=== PATIENT | female | born 1970 | race Caucasian/White ===

== ENCOUNTER → 2017-03-13 | Outpatient (CLI) | payer OTHER ==
[~2017-03-13] MED LIST: ASPIRIN81 M1 PO; BACTRIM DS 8001 TA1 PO; CARAFATE1 G1 PO; CEFUROXIME AXE250 MG PO; CELEXA20 MG PO; CEPHULAC10 GM/151 PO; Carafate1 GM PO; DELTASONE20 MG; DELTASONE20 MG PO; DOXYCYCLINE100 M4 PO; DOXYCYCLINE100 MG PO; FIORICET 325 MG1 TAB PO; HYDROCODONE BIT1 T11 PO; IMITREX100 MG PO; LACTULOSE10 GM/152 PO; LEVAQUIN250 MG PO; LIPITOR20 MG PO; Lopressor25 MG PO; MAGNESIUM OXID400 MG PO; MIDRIN 325 MG-11 CA1 PO; NAPROSYN500 MG PO; NEURONTIN600 MG PO; NEXIUM10 MG/PACK PO; NEXIUM40 MG PO; PREDNISONE10 MG; PREDNISONE20 MG PO; PRENATAL 1 PLUS1 TA2 PO; PRENATAL 1 PLUS1 TAB PO; PRILOSEC20 M1 PO; QVAR40 MCG INH; ROBITUSSIN AC 110 ML PO; SYMBICORT1 AE1 INH; SYMBICORT1 AER INTRADERM; SYNTHROID,LEV200 MCG PO; SYNTHROID0.125 MG PO; SYNTHROID0.175 MG PO; SYNTHROID0.2 M1 PO; Synthroid,Lev150 MCG PO; Synthroid,Lev200 MCG PO; TOPAMAX200 MG PO; TRAMADOL HCL50 MG PO; VICODIN 5/500 505 MG PO; VITAMIN D10000 UNIT PO; VOLTAREN75 MG PO; ZITHROMAX Z PA250 MG PO; ZOCOR10 MG PO; ZOFRAN ODT4 MG SL; Zofran4 MG PO; [UNRECOGNIZED DRUG - OTHER]
== END | disposition home or self-care (01) ==
LOC: CARD 02:17
DX: R07.89 Other chest pain (principal); R53.81 Other malaise; R07.2 Precordial pain

== ENCOUNTER → 2017-05-02 | Outpatient (CLI) | payer OTHER | END | disposition home or self-care (01) | LOC: MAMMO 10:22 | DX: Z12.31 Encounter for screening mammogram for malignant neoplasm of breast (principal) ==

== ENCOUNTER → 2017-06-06 | Outpatient (CLI) | payer OTHER | END | disposition home or self-care (01) | LOC: LAB 14:28 | DX: R53.83 Other fatigue (principal); R79.89 Other specified abnormal findings of blood chemistry ==

== ENCOUNTER → 2017-08-14 | Outpatient (CLI) | payer OTHER ==
[2017-08-14 09:38] LABS: BASO # 0.1 10*3/uL (0.0-0.1); BASO % 0.9 % (0.0-1.0); EOS # 0.1 10*3/uL (0.0-0.4); EOS % 1.7 % (1.0-4.0); HEMATOCRIT 38.9 % (37.0-47.0); HEMOGLOBIN 13.1 g/dl (12.0-16.0); LYMPH # 3.3 10*3/uL (1.3-4.4); LYMPH % 49.8 % (27.0-41.0); MEAN CELL VOLUME 86.8 fl (81.0-99.0); MEAN CORPUSCULAR HGB 29.2 pg (27.0-31.0); MEAN CORPUSCULAR HGB CONC 33.7 g/dl (33.0-37.0); MEAN PLATELET VOLUME 9.7 fl (9.6-12.3); MONO # 0.6 10*3/uL (0.1-1.0); NEUT # 2.5 10*3/uL (2.3-7.9); NEUT % 38.3 % (47.0-73.0); PLATELET COUNT AUTOMATED 312 10*3/uL (130-400); RED BLOOD COUNT 4.48 10*6/uL (4.10-5.10); RED CELL DISTRI WIDTH 13.9 % (0-14.5); WHITE BLOOD COUNT 6.5 10*3/uL (4.8-10.8)
[2017-08-14 10:01] LABS: BUN 12 mg/dl (7-24); CHLORIDE 109 mmol/L (98-107); CHOLESTEROL 169 mg/dL (<200); CREATININE 0.84 mg/dL (0.55-1.02); HDL CHOLESTEROL 48 mg/dl (40-60); LDL CHOLESTEROL 91 mg/dL (9-159); POTASSIUM 4.2 mmol/L (3.5-5.1); SODIUM 142 mmol/L (136-145); TRIGLYCERIDES 151 mg/dl (<150); VLDL CHOLESTEROL 30 mg/dL (6-40)
[2017-08-14 10:06] LABS: THYROID STIM HORMONE (HS) 0.085 uIU/ml (0.358-4.75)
== END | disposition home or self-care (01) ==
LOC: LAB 09:11
PROVIDERS: Internal Medicine Cardiovascular Disease
DX: E03.9 Hypothyroidism, unspecified (principal); D86.9 Sarcoidosis, unspecified; R00.2 Palpitations; Z82.49 Family history of ischemic heart disease and other diseases of the circulatory system

== ENCOUNTER → 2017-09-13 | Outpatient (CLI) | payer OTHER | END | disposition home or self-care (01) | LOC: US 09:11 | DX: R10.9 Unspecified abdominal pain (principal) ==

== ENCOUNTER → 2017-10-24 | Outpatient (CLI) | payer OTHER ==
[~2017-10-24] MED LIST changes: +CLARITIN-D 121 EACH PO; -TOPAMAX200 MG PO; +TOPAMAX50 MG PO; +WELLBUTRIN SR150 MG PO
== END | disposition home or self-care (01) ==
LOC: LAB 16:02
DX: J02.9 Acute pharyngitis, unspecified (principal)

== ENCOUNTER 2017-10-25 15:21 | Inpatient (IN) | payer OTHER ==
[~2017-10-25] VITALS: Ht 157.4 cm; Wt 88.0 kg
--- NOTE | ~2017-10-25 | PR ---
[place], [place] PROGRESS NOTE NAME: DEDE HODGE [facility] #: [id number] UNIT #: [id number] ROOM: 503 DOCTOR: NIDIA PACKER MD BIRTHDATE: [birth year] DOS: 10/27/2017 SUBJECTIVE: Alissa who has been admitted to hospital with acute pharyngitis with swelling of the tongue with difficulty in swallowing and was some difficulty in breathing. She is feeling much better now. She is able to swallow good without any difficulty eating and she is eating or drinking fairly good without much problem and denies any chest pain, no difficulty in breathing. Her MRSA is negative. Her CBC shows white count 27,900 because she is receiving lot of Solu-Medrol IV. Basic metabolic profile showed glucose 172. Other values are normal. This is also due to IV Solu-Medrol. Rapid influenza test is negative. OBJECTIVE: VITAL SIGNS: Her blood pressure is 123/73, pulse of 96, respirations 21, temperature 98.1. CHEST: Clear. HEART: Regular. ABDOMEN: Soft. NIDIA PACKER MD CM:PNTRANS [phone] NIDIA PACKER MD 10/27/178 interface
--- NOTE | ~2017-10-25 | PR ---
[place], [place] PROGRESS NOTE [id number] #: [id number] ROOM: 503 DOCTOR: JASON KEITA MD,ELMER BIRTHDATE: [birth year] DOS: 10/29/2017 SUBJECTIVE: The patient was noted comfortable at this time. She was able to eat, swallow clear liquids as well as a solid diet without any difficulty or pain. Denies symptoms of chest pain. OBJECTIVE: VITAL SIGNS: Normal temperature, respiratory rate of 18, heart rate 82, blood pressure 129/86. The pulse oxygen saturation on room air was 100% saturation. HEENT: No acute change. NECK: Supple. CARDIOVASCULAR: S1, S2 audible. LUNGS: Noted without any wheeze or crackles. ABDOMEN: Soft, nontender. EXTREMITIES: Without any acute edema. LABORATORY DATA: CBC: WBC count 22.3 otherwise normal CBC. IMPRESSION: Resolving leukocytosis, most likely steroid-induced with resolving acute pharyngitis as well. PLAN OF TREATMENT: No change in plan of therapy for the patient at this time. Continue the patient's current plan of management and care plan. Usual care. Supportive therapy and plan of management and therapies. ELMER GOMEZ MD CM:PNTRANS [id number] ELMER KEITA MD 10/30/17 0139 interface
--- NOTE | ~2017-10-25 | PR ---
[place], [place] PROGRESS NOTE [id number] UN[facility] #: [id number] ROOM: 503 DOCTOR: NIDIA PACKER MD BIRTHDATE: [birth year] DOS: 10/28/2017 SUBJECTIVE: The patient has been admitted to hospital with difficulty in swallowing and with acute pharyngitis and also she had difficulty in breathing. To start with she is progressively getting better and having soft food fairly good, with no difficulty in breathing. No fever or chills. No nausea, no vomiting. Her MRSA is negative. OBJECTIVE: VITAL SIGNS: Her blood pressure is 116/69, pulse 92, respirations 20, temperature 98. CHEST: Clear. HEART: Rate is regular. ABDOMEN: Soft. HEENT: Some tenderness in the submandibular and she is improving. I am going to advance her food from soft food to regular diet. NIDIA PACKER MD CM:PNTRANS [id number] NIDIA PACKER MD 10/29/17 0751 interface
--- NOTE | ~2017-10-25 | CON ---
[place], [place] REPORT OF CONSULTATION NAME: DEDE HODGE [facility] #: [id number] UNIT #: [id number] ROOM: [facility] DOCTOR: JASON KEITA MD,ELMER BIRTHDATE: [birth year] DOS: 10/26/2017 PULMONARY CONSULTATION, EVALUATION, AND MANAGEMENT REQUESTING PHYSICIAN: Dr. Khurram Garner REASON FOR CONSULTATION: Assessment of current problem with the swelling of the tongue and other respiratory symptoms. HISTORY OF PRESENT ILLNESS: This is a 47-year-old white female patient with past known medical history of sarcoidosis, chronic obesity, who has been regularly assessed in my office. The patient was also noted with history of bronchial asthma as well and is known to me. The patient presented to the Emergency Room as she started having symptoms of acute sore throat and also reported some pain and swelling on the left side of the neck as well as under the jaw. The patient stated that her tongue has been swelling intermittently at home. She has been admitted to the hospital and was noted with again swelling of the tongue. She was noted with pain on swallowing at all. She is not noted in any respiratory distress, currently treated in Intensive Care Unit. She has been noted with minimal cough without any sputum expectoration. Denies symptoms of acute shortness of breath as well. Denies symptoms of wheezing or hemoptysis. The patient was checked in the primary care physician's office for the influenza infection with rapid testing and the strep throat as well. REVIEW OF SYSTEMS: CONSTITUTIONAL SYMPTOMS: Fatigue and tiredness noted without any symptoms of fever or chills. EYES: Denies any burning or redness or any drainage. EARS, NOSE, AND THROAT SYMPTOMS: Denies any postnasal drainage or epistaxis. She is complaining of sore throat. The patient has some swelling and pain in the left neck. CARDIOVASCULAR: Denies anginal pain, edema, or pain of the lower extremities. GASTROINTESTINAL SYMPTOMS: Denies any nausea, vomiting, diarrhea, abdominal pain, hematemesis, or melena. Current dysphagia and pain and swelling of the patient was reported, which is an acute onset. The patient does not have any past GI symptoms. Denies any symptoms of abnormal weight loss. MUSCULOSKELETAL: No acute joint pain, redness, or tenderness. SKIN: Denies any rashes, lesions, or ulcers. CENTRAL NERVOUS SYSTEM: No dizziness, headache, diplopia, or syncopal episodes. Remaining systems were reviewed of the patient, they were noted all negative. PAST MEDICAL HISTORY: Known with history of: 1. Mild intermittent bronchial asthma. 2. History of sarcoidosis. 3. Restless leg syndrome. 4. Chronic moderate obesity. 5. History of migraines. [place], [place] REPORT OF CONSULTATION NAME: DEDE HODGE UNIT #: [id number] ROOM: [facility] DOCTOR: ELMER DARDEN MD BIRTHDATE: [birth year] SOCIAL HISTORY: The patient is , lives at home, has 2 children. She was noted nonsmoker for lifetime. There is no history of alcohol use or any illicit drugs use. PAST SURGICAL HISTORY: 1. The patient noted with a . 2. Rotator cuff surgery. 3. Splenectomy 2010. At that time, the diagnosis of sarcoidosis was established. FAMILY HISTORY: The patient's father is 72 years old with history of coronary artery disease, diabetes, known. Mother 65 years old without any known medical illnesses. MEDICATIONS. Home medications of the patient were known as use of aspirin, Topamax, Effexor, aspirin, magnesium oxide, Synthroid, and other p.r.n. medications. DRUG ALLERGIES: No known drug allergies. PHYSICAL EXAMINATION: GENERAL: This is a 47-year-old female patient noted currently sitting on the bed without any acute distress at the time of assessment in the Intensive Care Unit. Height of 5 feet 2 inches, weight of 194 pounds with BMI 35.5. VITAL SIGNS: For the patient, which were recorded, shows a normal temperature, respiratory rate of 16-20. Heart rate of 80-74. Blood pressure 106/65-130/83. HEENT: Head was atraumatic. Eyes nonicterus. NECK: Supple. Mild lymph node enlargement noted in the neck with some tenderness noted in the submandibular area. Otherwise, the neck examination was noted normal. HEENT and neck examination of the patient otherwise noted without any acute abnormalities. Decreased posterior pharyngeal space was noted, which is chronic. LUNGS: The patient noted free of any wheezing or crackles. Good breath sounds were present. ABDOMEN: Noted soft, nontender, and obese. Bowel sounds are present. EXTREMITIES: The patient was noted without any edema. Chronic obesity was noted. SKIN: Visible skin was noted without any lesions or rashes. CENTRAL NERVOUS SYSTEM: Cranial nerves 2-12 intact. There were no focal deficits. LABORATORY DATA: CBC of the patient yesterday, WBC count 11.8, otherwise normal CBC. Rapid influenza A and B, nasal washing antigens were negative. The CMP of the patient that was done yesterday noted as completely normal. BMP this morning repeated again of the patient noted normal BUN and creatinine. CBC, WBC count 12.8. IMPRESSION: 1. The patient who has been currently admitted to the hospital with possible [place], [place] REPORT OF CONSULTATION NAME: DEDE HODGE UNIT #: [id number] ROOM: [facility] DOCTOR: JASON KEITA MD,ELMER BIRTHDATE: [birth year] swelling of the tongue, etiology unclear, most likely noted with acute pharyngitis, rule out any epiglottitis. 2. The patient with chronic moderate obesity as well. 3. History of bronchial asthma without an acute exacerbation as well. 4. History of known sarcoidosis as well. 5. Enlargement of the lymph node with tenderness in the neck, most likely related to current acute viral or bacterial infection. PLAN OF MANAGEMENT: I have personally examined the patient with the use of the GlideScope to assess the airway of the patient as well as the throat. The epiglottis of the patient was noted red, but does not seem to be swollen. Severe acute pharyngitis findings were noted with patches of infection and white patches with severe inflammatory changes. The tongue examination in general appeared to be normal at the present time. The patient would be started on oral antibiotic, Zithromax. The CT scan of the neck will be ordered for the patient to rule out Anastacio angina or any abscess formation in the back of the throat. Monitoring of the respiratory status of the patient closely in Intensive Care Unit. Other supportive therapy, plan of management and care plan. Cultures of the throat for the patient for an additional viral illness will be obtained including repeating nasopharyngeal swab for this patient for the influenza A and B again. Usual care. The patient has been already given the Solu-Medrol to help reduce the inflammation in the pharyngeal area. The patient is not requiring any intubation or mechanical ventilation at this time; however, the monitoring is to be done closely. Supportive therapy, plan of management and other care. After assessment, CT scan of the neck of the patient, any additional assessment change if necessary will be ordered accordingly. Thanks for allowing me to participate in the care of this patient. ELMER GOMEZ MD CM:CONSTR:REPORT OF CONSULTATION 1257 10/27/17 0104 interface
--- NOTE | ~2017-10-25 | PR ---
[place], [place] PROGRESS NOTE NAME: DEDE HODGE [facility] #: [id number] UNIT #: [id number] ROOM: [facility] DOCTOR: JASON KEITA MD,ELMER BIRTHDATE: [birth year] DOS: 10/27/2017 SUBJECTIVE: She has noted acute symptoms of sore throat. Denies symptoms of chest pain or any acute hemoptysis. Denies symptoms of abdominal pain, nausea or vomiting. The swelling of the tongue currently has not been noted significant. She has been using Nystatin swish and swallow medications as well. CT scan of the neck was completed yesterday. The difficulty swallowing was noted with gradual improvement. Denies symptoms of abdominal pain. The patient not noted any pain in the neck at this time. The patient denies symptoms of hemoptysis, nausea, vomiting, or dysuria. Remaining systems were reviewed. They were noted all negative. OBJECTIVE: VITAL SIGNS: For the patient, which has been recorded showed the temperature noted as normal. The respiratory rate recorded as 16, heart rate of 77, blood pressure 122/74. The pulse oxygen saturation noted as 96% saturation. HEENT: Examination shows head was atraumatic. Eyes nonicterus. NECK: Supple. CARDIOVASCULAR: S1, S2 audible. LUNGS: The patient was noted without any wheeze or crackles. ABDOMEN: Soft, nontender. EXTREMITIES: Without any acute edema. LABORATORY DATA: Glucose noted 172, otherwise CMP normal. CBC, WBC count elevated 27.9, platelet count elevated 431. A 2% segmented neutrophils were noted, 40% lymphocytes. IMPRESSION: The patient with acute pharyngitis. CT scan of the neck was not noted any significant abnormality except some prominence of the tongue base. All the airways noted as patent. Influenza A and B, nasal washing antigen negative. The respiratory viral panel was taken, which was pending at this time. History of sarcoidosis. History of mild bronchial asthma. PLAN OF TREATMENT: Continue current plan of management except reduction of Solu-Medrol from 80 mg q.8h. to 40 mg b.i.d. dosing. Leukocytosis, most likely induced by the high dose of corticosteroids. Monitor CBC. Other supportive therapy, plan and management previously ongoing. Additional treatment changes will be made for the patient based on progression of the illness. [place], [place] PROGRESS NOTE NAME: DEDE HODGE UNIT #: [id number] ROOM: [facility] DOCTOR: ELMER DARDEN MD BIRTHDATE: [birth year] ELMER GOMEZ MD CM:PNTRANS [id number] ELMER KEITA MD 10/27/17 1119 interface
--- NOTE | ~2017-10-25 | PR ---
[place], [place] [facility]GRESS NOTE [id number] #: [id number] ROOM: 503 DOCTOR: JASON KEITA MD,ELMER BIRTHDATE: [birth year] DOS: 10/28/2017 SUBJECTIVE: She has been noted comfortable with improvement in the pain noted with swallowing. Denies symptoms of chest pain or any hemoptysis. Denies symptoms of nausea or vomiting. OBJECTIVE: VITAL SIGNS: The patient showed normal temperature, respiratory rate of 20, heart rate 82, blood pressure 120/74. Pulse oxygen saturation recorded as 98% saturation on room air. HEENT: No acute findings at this time. CARDIOVASCULAR: S1, S2 is audible. LUNGS: The patient was noted without any wheezing or crackles at present time. ABDOMEN: Soft, nontender. EXTREMITIES: Without any acute edema. IMPRESSION: 1. The patient with continued improvement in the acute severe pharyngitis and pain noted. Nonspecific some swelling at base of the tongue was noted, most likely related to current acute infection was considered. 2. Leukocytosis related to corticosteroids. History of sarcoidosis. PLAN OF MANAGEMENT: Discontinue Solu-Medrol completely today. Repeat CBC in the morning. Other supportive therapy, plan of management and care plan. ELMER GOMEZ MD CM:PNTRANS [id number] ELMER KEITA MD 10/29/17 0018 interface
[~2017-10-25 15:21] MED LIST changes: -CLARITIN-D 121 EACH PO; -WELLBUTRIN SR150 MG PO
[2017-10-25 15:35] VITALS: BP 130/83
[2017-10-25 16:00] VITALS: BP 130/83
[2017-10-25] MEDS ORDERED: WELLBUTRIN SR150 MG PO (16:26)
[2017-10-25] MEDS ORDERED: CLARITIN-D 121 EACH PO (16:26)
[2017-10-25 17:48] LABS: BASO # 0.1 10*3/uL (0.0-0.1); BASO % 0.7 % (0.0-1.0); EOS # 0.2 10*3/uL (0.0-0.4); EOS % 1.7 % (1.0-4.0); HEMATOCRIT 40.8 % (37.0-47.0); HEMOGLOBIN 13.4 g/dl (12.0-16.0); LYMPH # 4.2 10*3/uL (1.3-4.4); LYMPH % 35.5 % (27.0-41.0); MEAN CELL VOLUME 87.7 fl (81.0-99.0); MEAN CORPUSCULAR HGB 28.8 pg (27.0-31.0); MEAN CORPUSCULAR HGB CONC 32.8 g/dl (33.0-37.0); MEAN PLATELET VOLUME 9.8 fl (9.6-12.3); MONO # 1.1 10*3/uL (0.1-1.0); NEUT # 6.2 10*3/uL (2.3-7.9); NEUT % 52.5 % (47.0-73.0); PLATELET COUNT AUTOMATED 392 10*3/uL (130-400); RED BLOOD COUNT 4.65 10*6/uL (4.10-5.10); RED CELL DISTRI WIDTH 14.9 % (0-14.5); WHITE BLOOD COUNT 11.8 10*3/uL (4.8-10.8)
[2017-10-25 18:06] LABS: ALBUMIN 3.4 gm/dl (3.1-4.5); ALKALINE PHOSPHATASE 80 U/L (45-117); BUN 12 mg/dl (7-24); CHLORIDE 106 mmol/L (98-107); CREATININE 0.84 mg/dL (0.55-1.02); PHOSPHOROUS 2.9 mg/dL (2.5-4.9); POTASSIUM 4.4 mmol/L (3.5-5.1); SGOT/AST 17 IU/L (3-35); SGPT/ALT 25 U/L (12-78); SODIUM 139 mmol/L (136-145)
[2017-10-25 18:18] LABS: VITAMIN D, 25-HYDROXY 22.5 ng/mL (30-100)
[2017-10-25 20:00] VITALS: BP 109/70
[2017-10-26] VITALS: BP 117/73
[2017-10-26 04:00] VITALS: BP 106/65
[2017-10-26 05:55] LABS: BUN 14 mg/dl (7-24); CHLORIDE 105 mmol/L (98-107); CREATININE 0.73 mg/dL (0.55-1.02); HEMOGLOBIN 13.8 g/dl (12.0-16.0); MEAN CELL VOLUME 87.4 fl (81.0-99.0); MEAN CORPUSCULAR HGB 29.4 pg (27.0-31.0); MEAN CORPUSCULAR HGB CONC 33.7 g/dl (33.0-37.0); MEAN PLATELET VOLUME 10.1 fl (9.6-12.3); PLATELET COUNT AUTOMATED 427 10*3/uL (130-400); RED BLOOD COUNT 4.69 10*6/uL (4.10-5.10); RED CELL DISTRI WIDTH 14.8 % (0-14.5); SODIUM 138 mmol/L (136-145); WHITE BLOOD COUNT 12.8 10*3/uL (4.8-10.8)
[2017-10-26 06:33] LABS: ACANTHOCYTES FEW; ATYPICAL LYMPHS 1 % (0-0); BURR CELLS FEW; PLATELET SUFFICIENCY HIGH (NORMAL); SCHISTOCYTES FEW; TARGET CELLS FEW; TOTAL CELLS COUNTED 100 #CELLS
[2017-10-26 06:34] LABS: HOWELL-JOLLY BODIES FEW
[2017-10-26 08:00] VITALS: BP 137/86
[2017-10-26 12:00] VITALS: BP 126/84
[2017-10-26 16:00] VITALS: BP 118/81
[2017-10-26 20:00] VITALS: BP 108/64
[2017-10-27] VITALS: BP 110/56
[2017-10-27 04:00] VITALS: BP 121/69
[2017-10-27 05:06] LABS: HEMATOCRIT 41.4 % (37.0-47.0); HEMOGLOBIN 13.5 g/dl (12.0-16.0); MEAN CELL VOLUME 87.3 fl (81.0-99.0); MEAN CORPUSCULAR HGB 28.5 pg (27.0-31.0); MEAN CORPUSCULAR HGB CONC 32.6 g/dl (33.0-37.0); MEAN PLATELET VOLUME 9.9 fl (9.6-12.3); PLATELET COUNT AUTOMATED 431 10*3/uL (130-400); RED BLOOD COUNT 4.74 10*6/uL (4.10-5.10); RED CELL DISTRI WIDTH 14.6 % (0-14.5); WHITE BLOOD COUNT 27.9 10*3/uL (4.8-10.8)
[2017-10-27 05:21] LABS: BUN 19 mg/dl (7-24); CHLORIDE 106 mmol/L (98-107); CREATININE 0.87 mg/dL (0.55-1.02); POTASSIUM 4.4 mmol/L (3.5-5.1); SODIUM 138 mmol/L (136-145)
[2017-10-27 05:31] LABS: PLATELET SUFFICIENCY HIGH (NORMAL); TOTAL CELLS COUNTED 100 #CELLS
[2017-10-27 05:32] LABS: BURR CELLS FEW; POLYCHROMASIA SLIGHT
[2017-10-27 08:00] VITALS: BP 123/74
[2017-10-27 12:00] VITALS: BP 123/76
[2017-10-27 16:00] VITALS: BP 119/69
[2017-10-27 20:00] VITALS: BP 123/72
[2017-10-28] VITALS: BP 128/65
[2017-10-28 08:00] VITALS: BP 116/69
[2017-10-28 12:00] VITALS: BP 128/74
[2017-10-28 16:00] VITALS: BP 123/82
[2017-10-28 19:59] VITALS: BP 117/73
[2017-10-29] VITALS: BP 111/65
[2017-10-29 06:25] LABS: HEMATOCRIT 39.9 % (37.0-47.0); HEMOGLOBIN 13.5 g/dl (12.0-16.0); MEAN CELL VOLUME 87.9 fl (81.0-99.0); MEAN CORPUSCULAR HGB 29.7 pg (27.0-31.0); MEAN CORPUSCULAR HGB CONC 33.8 g/dl (33.0-37.0); MEAN PLATELET VOLUME 10.1 fl (9.6-12.3); NUCLEATED RED BLOOD CELL 0.1 % (0.0-0.0); PLATELET COUNT AUTOMATED 406 10*3/uL (130-400); RED BLOOD COUNT 4.54 10*6/uL (4.10-5.10); RED CELL DISTRI WIDTH 15.1 % (0-14.5); WHITE BLOOD COUNT 22.3 10*3/uL (4.8-10.8)
[2017-10-29 07:00] LABS: ACANTHOCYTES FEW; ATYPICAL LYMPHS 4 % (0-0); HOWELL-JOLLY BODIES FEW; PLATELET SUFFICIENCY NORMAL (NORMAL); TOTAL CELLS COUNTED 100 #CELLS
[2017-10-29 08:00] VITALS: BP 117/83
[2017-10-29 12:00] VITALS: BP 129/86
[2017-10-29] MEDS ORDERED: PREDNISONE10 MG PO (13:03)
[2017-10-30 01:02] LABS: ADENOVIRUS Negative (Negative); INFLUENZA A Negative (Negative); INFLUENZA B Negative (Negative); METAPNEUMOVIRUS Negative (Negative); PARAINFLUENZA 1 Negative (Negative); PARAINFLUENZA 2 Negative (Negative); PARAINFLUENZA 3 Negative (Negative); RHINOVIRUS Negative (Negative); RSV A Negative (Negative); RSV B Negative (Negative)
== END 2017-10-29 14:08 | disposition home or self-care (01) | DRG 153 ==
LOC: ICCU 15:21 → 4E 15:21 → ICCU 17:47 → 5E 10-27 13:29
PROVIDERS: Internal Medicine Critical Care Medicine; Student in an Organized Health Care Education/Training Program
DX: J02.9 Acute pharyngitis, unspecified (principal); D86.9 Sarcoidosis, unspecified; K14.8 Other diseases of tongue; J41.0 Simple chronic bronchitis; F32.9 Major depressive disorder, single episode, unspecified; E03.9 Hypothyroidism, unspecified; G43.919 Migraine, unspecified, intractable, without status migrainosus; K59.00 Constipation, unspecified; J45.20 Mild intermittent asthma, uncomplicated; E66.9 Obesity, unspecified; G25.81 Restless legs syndrome; R59.0 Localized enlarged lymph nodes; E55.9 Vitamin D deficiency, unspecified; R73.9 Hyperglycemia, unspecified; T38.0X5A Adverse effect of glucocorticoids and synthetic analogues, initial encounter; Y92.89 Other specified places as the place of occurrence of the external cause; Z86.73 Personal history of transient ischemic attack (TIA), and cerebral infarction without residual deficits; Z90.81 Acquired absence of spleen; Z82.49 Family history of ischemic heart disease and other diseases of the circulatory system; Z83.3 Family history of diabetes mellitus; Z79.82 Long term (current) use of aspirin; Z79.899 Other long term (current) drug therapy; Z68.35 Body mass index [BMI] 35.0-35.9, adult

== ENCOUNTER 2018-04-30 13:49 | Emergency (ER) | payer OTHER ==
[~2018-04-30] VITALS: Ht 157.4 cm; Wt 82.6 kg
--- NOTE | ~2018-04-30 | EKG ---
[place], [place] ELECTROCARDIOGRAM REPORT NAME: DEDE HODGE UNIT #: [id number] ROOM: DOCTOR: EPIPHANY DRAFT REPORT BIRTHDATE: [birth year] [facility] Test Date: 2018-04-30 Test Time: 14:12:11 Pat Name: DEDE HODGE Department: Room: Gender: F [employer]: : 1970 Requested By: ELI GARCÍA DNP Order Number: [id number] Reading MD: Khurram Garner MD Measurements Intervals [place] Rate: 99 P: 43 [place]: 123 QRS: 49 QRSD: 78 T: -1 QT: 351 QTc: 451 Interpretive Statements Sinus rhythm Borderline T wave abnormalities Baseline wander in lead(s) V6 Electronically Signed On 05-01-2018 6:40:48 PDT by Khurram Garner MD CM:EKGRPT:ELECTROCARDIOGRAM REPORT [id number] ELI MCKEON DRAFT REPORT ELI GARCÍA DNP
[~2018-04-30 13:49] MED LIST changes: +CLARITIN-D 121 EACH PO; +PREDNISONE10 MG PO; +WELLBUTRIN SR150 MG PO
[2018-04-30 13:51] VITALS: BP 126/88
[2018-04-30 14:26] LABS: BASO # 0.1 10*3/uL (0.0-0.1); BASO % 0.8 % (0.0-1.0); EOS # 0.3 10*3/uL (0.0-0.4); EOS % 2.3 % (1.0-4.0); HEMATOCRIT 41.2 % (37.0-47.0); HEMOGLOBIN 13.7 g/dl (12.0-16.0); LYMPH # 3.1 10*3/uL (1.3-4.4); LYMPH % 26.8 % (27.0-41.0); MEAN CELL VOLUME 88.6 fl (81.0-99.0); MEAN CORPUSCULAR HGB 29.5 pg (27.0-31.0); MEAN CORPUSCULAR HGB CONC 33.3 g/dl (33.0-37.0); MEAN PLATELET VOLUME 9.8 fl (9.6-12.3); MONO # 1.2 10*3/uL (0.1-1.0); MONO % 10.9 % (3.0-9.0); NEUT # 6.7 10*3/uL (2.3-7.9); NEUT % 58.7 % (47.0-73.0); PLATELET COUNT AUTOMATED 355 10*3/uL (130-400); RED BLOOD COUNT 4.65 10*6/uL (4.10-5.10); RED CELL DISTRI WIDTH 14.2 % (0-14.5); WHITE BLOOD COUNT 11.4 10*3/uL (4.8-10.8)
[2018-04-30 14:34] LABS: ACT PARTIAL THROMBO TIME 25.1 SECONDS (20.8-31.5)
[2018-04-30 14:42] LABS: ALBUMIN 3.8 gm/dl (3.1-4.5); ALKALINE PHOSPHATASE 84 U/L (45-117); BUN 14 mg/dl (7-24); CHLORIDE 106 mmol/L (98-107); CREATININE 0.98 mg/dL (0.55-1.02); LIPASE 165 U/L (73-393); POTASSIUM 3.6 mmol/L (3.5-5.1); SGOT/AST 14 IU/L (3-35); SGPT/ALT 21 U/L (12-78); SODIUM 138 mmol/L (136-145)
[2018-04-30 14:45] LABS: TROPONIN I < 0.015 ng/ml (<0.045)
[2018-04-30 15:23] LABS: BILIRUBIN NEGATIVE (NEGATIVE); BLOOD 1+ (NEGATIVE); CLARITY CLEAR (CLEAR); COLOR YELLOW (YELLOW); GLUCOSE NEGATIVE (NEGATIVE); KETONE 1+ (NEGATIVE); LEUKO ESTERASE 1+ (NEGATIVE); NITRITE NEGATIVE (NEGATIVE); PH 5.5 (5.0-9.0); UROBILINOGEN 0.2 E.U./dl (0.2-1.0)
[2018-04-30 15:54] LABS: BACTERIA TRACE; EPITHELIAL CELLS 25-30
[2018-04-30] MEDS ORDERED: PREDNISONE20 M1 PO (16:30)
[2018-04-30] MEDS ORDERED: Zofran4 MG SL (16:30)
== END 2018-04-30 16:55 | disposition home or self-care (01) ==
LOC: ED 13:49
PROVIDERS: Nurse Practitioner Family
DX: J06.9 Acute upper respiratory infection, unspecified (principal); J20.9 Acute bronchitis, unspecified; Z79.899 Other long term (current) drug therapy; Z79.82 Long term (current) use of aspirin

== ENCOUNTER → 2018-09-02 | Outpatient (CLI) | payer OTHER ==
[~2018-09-02] MED LIST changes: +PREDNISONE20 M1 PO; +Zofran4 MG SL
[2018-09-02 10:33] LABS: ALBUMIN 3.7 gm/dl (3.1-4.5); BUN 19 mg/dl (7-24); CHLORIDE 111 mmol/L (98-107); CREATININE 1.08 mg/dL (0.55-1.02); FREE T4 0.67 ng/dl (0.76-1.46); POTASSIUM 3.7 mmol/L (3.5-5.1); SODIUM 142 mmol/L (136-145)
[2018-09-02 11:41] LABS: VITAMIN D, 25-HYDROXY 29.7 ng/mL (30-100)
[2018-09-03 07:07] LABS: FOLLICLE STIMULATING HORMONE 8.2 mIU/mL (.); FREE T3 010389 2.8 pg/mL (2.0-4.4); LUTEINIZING HORMONE 004283 7.5 mIU/mL (.); PROGESTERONE 004317 7.7 ng/mL (.); THYROID PEROXIDASE (TPO) AB 18 IU/mL (0-34)
[2018-09-03 14:09] LABS: THYROGLOBULIN ANTIBODY <1.0 IU/mL (0.0-0.9)
[2018-09-04 09:16] LABS: DEHYDROEPIANDROSTERONE 004100 102 ng/dL (31-701)
== END | disposition home or self-care (01) ==
LOC: LAB 09:21
PROVIDERS: Internal Medicine
DX: E03.9 Hypothyroidism, unspecified (principal); E55.9 Vitamin D deficiency, unspecified; L65.9 Nonscarring hair loss, unspecified; N95.1 Menopausal and female climacteric states; R51 Headache

== ENCOUNTER → 2018-09-03 | Outpatient (CLI) | payer OTHER | END | disposition home or self-care (01) | LOC: MAMMO 13:16 | DX: N63.0 Unspecified lump in unspecified breast (principal) ==

== ENCOUNTER → 2018-12-17 | Outpatient (CLI) | payer OTHER ==
[~2018-12-17] MED LIST changes: +ARMOUR THYROID90 M1 PO; +TOPAMAX100 M1 PO
[2018-12-17 10:48] LABS: ALBUMIN 3.6 gm/dl (3.1-4.5); BUN 12 mg/dl (7-24); CHLORIDE 108 mmol/L (98-107); CREATININE 1.03 mg/dL (0.55-1.02); POTASSIUM 3.8 mmol/L (3.5-5.1); SODIUM 138 mmol/L (136-145)
== END | disposition home or self-care (01) ==
LOC: LAB 09:33
PROVIDERS: Internal Medicine
DX: N95.1 Menopausal and female climacteric states (principal); E03.9 Hypothyroidism, unspecified; E55.9 Vitamin D deficiency, unspecified; R00.2 Palpitations; W57.XXXA Bitten or stung by nonvenomous insect and other nonvenomous arthropods, initial encounter

== ENCOUNTER → 2019-04-29 | Outpatient (CLI) | payer OTHER ==
[2019-04-29 14:29] LABS: BUN 16 mg/dl (7-24); CHLORIDE 107 mmol/L (98-107); FREE T4 0.89 ng/dl (0.76-1.46); POTASSIUM 3.7 mmol/L (3.5-5.1); SODIUM 139 mmol/L (136-145)
[2019-04-29 14:35] LABS: THYROID STIM HORMONE (HS) 0.328 uIU/ml (0.358-4.75)
[2019-04-30 07:05] LABS: LUTEINIZING HORMONE 004283 6.9 mIU/mL (.); PROGESTERONE 004317 0.2 ng/mL (.)
== END | disposition home or self-care (01) ==
LOC: LAB 13:28
PROVIDERS: Internal Medicine
DX: E55.9 Vitamin D deficiency, unspecified (principal); E03.9 Hypothyroidism, unspecified; N95.1 Menopausal and female climacteric states; R00.2 Palpitations

== ENCOUNTER → 2019-05-05 | Outpatient (CLI) | payer OTHER ==
[~2019-05-05] MED LIST changes: +PROTONIX40 MG PO; +Ventolin 02.5 MG/3 M INH
== END | disposition home or self-care (01) ==
LOC: RAD 14:46
DX: M67.431 Ganglion, right wrist (principal)

== ENCOUNTER 2019-07-03 13:25 | Inpatient (IN) | payer OTHER ==
[~2019-07-03] VITALS: Ht 157.4 cm; Wt 80.5 kg
[~2019-07-03 13:25] MED LIST changes: -PROTONIX40 MG PO; -Ventolin 02.5 MG/3 M INH
[2019-07-03 13:27] VITALS: BP 147/89
[2019-07-03 13:44] LABS: HEMATOCRIT 43.7 % (37.0-47.0); HEMOGLOBIN 14.7 g/dl (12.0-16.0); MEAN CELL VOLUME 89.4 fl (81.0-99.0); MEAN CORPUSCULAR HGB 30.1 pg (27.0-31.0); MEAN CORPUSCULAR HGB CONC 33.6 g/dl (33.0-37.0); MEAN PLATELET VOLUME 9.7 fl (9.6-12.3); PLATELET COUNT AUTOMATED 390 10*3/uL (130-400); RED BLOOD COUNT 4.89 10*6/uL (4.10-5.10); RED CELL DISTRI WIDTH 14.6 % (0-14.5); WHITE BLOOD COUNT 12.5 10*3/uL (4.8-10.8)
[2019-07-03 13:56] LABS: ACT PARTIAL THROMBO TIME 26.8 SECONDS (20.0-32.1); INTERNATIONAL NORM RATIO 0.9 (2.0-3.5)
[2019-07-03 14:06] LABS: BASOPHILS 2 % (0-1); TOTAL CELLS COUNTED 100 #CELLS
[2019-07-03 14:07] LABS: PLATELET SUFFICIENCY NORMAL (NORMAL)
[2019-07-03 15:05] LABS: ALBUMIN 3.4 gm/dl (3.1-4.5); ALKALINE PHOSPHATASE 73 U/L (45-117); BUN 15 mg/dl (7-24); CHLORIDE 108 mmol/L (98-107); CREATININE 1.16 mg/dL (0.55-1.02); POTASSIUM 3.5 mmol/L (3.5-5.1); SGOT/AST 22 IU/L (3-35); SGPT/ALT 35 U/L (12-78); SODIUM 140 mmol/L (136-145); TOTAL PROTEIN 7.4 gm/dL (6.4-8.2)
[2019-07-03 15:09] LABS: TROPONIN I < 0.015 ng/ml (<0.045)
[2019-07-03 15:38] VITALS: BP 125/64
--- NOTE | 2019-07-03 15:43 | NUR ---
PATIENT RESTING IN BED AT THIS TIME. DENIES A NEED FOR ANYTHING AT THIS TIME. CALL LIGHT WITHIN REACH.
[2019-07-03 15:47] VITALS: BP 136/77
--- NOTE | 2019-07-03 15:47 | NUR ---
A 48, admitted to , under the services of KERI Mahajan MD with a diagnosis of CHEST PAIN WITH MODERATE CORONARY ARTERY RISK. Chief complaint is CHEST PAIN. Patient arrived via stretcher from ER. Monitor applied. Initial assessment completed. Vital signs taken and recorded. KERI MAHAJAN MD notified of admission to the unit. Orders received. See assessment for past medical history, medications and allergies. Patient and/or family oriented to unit. [facility] visitation policy reviewed. Clothing/patient valuable form completed. MYAH OLSEN
[2019-07-03] MEDS ORDERED: PRILOSEC20 M1 PO (15:59)
[2019-07-03] MEDS ORDERED: IMITREX100 MG PO (16:02)
[2019-07-03] MEDS ORDERED: Ventolin 02.5 MG/3 M INH (16:04)
--- NOTE | 2019-07-03 16:10 | NUR ---
Contacted patients home pharmacy. Medication reconciliation updated and complete.
--- NOTE | 2019-07-03 16:15 | NUR ---
Face to face encounter with Dr. Monson and notified of patients med rec being completed and up to date.
--- NOTE | 2019-07-03 16:31 | NUR ---
DISPO COMPLETED BY TERRY VALENCIA LPN
[2019-07-03 20:00] VITALS: BP 116/73
--- NOTE | 2019-07-03 20:06 | NUR ---
RESTING IN BED. RESPIRATIONS EASY. LUNGS DIMINISHED, CLEAR. PULSE OX 98% RA. CLAIMS NON-PROD COUGH. MEDICATED WITH ZOFRAN IV PER PRN ORDER FOR COMPLAINTS OF NAUSEA. IV FLUIDS INFUSING PER ORDER. CALL LIGHT WITHIN REACH
--- NOTE | 2019-07-03 20:44 | NUR ---
24 HR chart check completed.
--- NOTE | 2019-07-03 23:00 | NUR ---
EARLIER MEDS APPEAR EFFECTIVE. SLEEPING
[2019-07-04] VITALS: BP 115/52
--- NOTE | 2019-07-04 | NUR ---
SLEEPING. NO DISTRESS NOTED. RESPIRATIONS EASY. VSS. CALL LIGHT WITHIN REACH
--- NOTE | 2019-07-04 06:00 | NUR ---
SLEPT THROUGHOUT NIGHT WITH NO DISTRESS NOTED. RESPIRATIONS EASY. NPO STATUS MAINTAINED FOR TESTING
[2019-07-04 06:29] LABS: BASO % 0.2 % (0.0-1.0); HEMATOCRIT 42.3 % (37.0-47.0); HEMOGLOBIN 13.6 g/dl (12.0-16.0); LYMPH # 1.6 10*3/uL (1.3-4.4); LYMPH % 16.6 % (27.0-41.0); MEAN CELL VOLUME 89.6 fl (81.0-99.0); MEAN CORPUSCULAR HGB 28.8 pg (27.0-31.0); MEAN CORPUSCULAR HGB CONC 32.2 g/dl (33.0-37.0); MEAN PLATELET VOLUME 10.8 fl (9.6-12.3); MONO # 0.1 10*3/uL (0.1-1.0); MONO % 1.3 % (3.0-9.0); NEUT # 7.6 10*3/uL (2.3-7.9); NEUT % 81.5 % (47.0-73.0); PLATELET COUNT AUTOMATED 348 10*3/uL (130-400); RED BLOOD COUNT 4.72 10*6/uL (4.10-5.10); RED CELL DISTRI WIDTH 14.6 % (0-14.5); WHITE BLOOD COUNT 9.4 10*3/uL (4.8-10.8)
[2019-07-04 06:46] LABS: ALBUMIN 3.3 gm/dl (3.1-4.5); BUN 11 mg/dl (7-24); CHLORIDE 111 mmol/L (98-107); POTASSIUM 4.4 mmol/L (3.5-5.1); SODIUM 138 mmol/L (136-145)
[2019-07-04 06:53] LABS: ALKALINE PHOSPHATASE 72 U/L (45-117); CHOLESTEROL 229 mg/dL (<200); CREATININE 0.92 mg/dL (0.55-1.02); HDL CHOLESTEROL 57 mg/dl (40-60); LDL CHOLESTEROL 159 mg/dL (9-159); PHOSPHOROUS 2.7 mg/dL (2.5-4.9); SGOT/AST 26 IU/L (3-35); SGPT/ALT 33 U/L (12-78); TOTAL PROTEIN 7.3 gm/dL (6.4-8.2); TRIGLYCERIDES 64 mg/dl (<150); VLDL CHOLESTEROL 13 mg/dL (6-40)
[2019-07-04 08:00] VITALS: BP 111/68
--- NOTE | 2019-07-04 09:00 | NUR ---
[employer] in to talk to patient. Patient states lives at home with her fiance. There are 2 steps in the home. Physician: Dr. Khurram Garner [facility]acy: [facility] Home health services: none Patient's level of ADLs: INDEPENDENT Patient has working utilities: yes DME: none Follow-up physician's appointment after d/c: she prefers to make her own follow up appt after discharge Does patient want to access PORTAL?: no Discharge plan discussed with patient. She lives at home with her fiance. She is independent in her ADLs and ambulation. Discussed home health care services and she denies any home needs at this time. She says a nurse comes to her house every 6 months from her insurance company to check on her needs. When medically stable she will be discharged to home. She states she will call a friend to provide transportation to home up on discharge. NIKUNJ RODRIGUEZ
[2019-07-04 12:00] VITALS: BP 131/62
--- NOTE | 2019-07-04 13:06 | NUR ---
INFORMED SIGNED CONSENT OBTAINED FOR LEXISCAN STRES TEST WITH DR MOURA. RESTING EKG SINUS TACHYCARDIA HR 102 BP 120/78. PULSE OX 100% LUNGS CLEARLY DIMINISHED. PT COMPLETED ONE MINUTE OF A LEXISCAN PROTOCOL WITH PT RECEIVING LEXISCAN 0.4 MG IV OVER 10 SECONDS. NO ARRHYTHMIAS NOTED. NON DIAGNOSTIC ST DEPRESSION II III AVF V3-V6. PT C/O A HOT FLASH FEELING WITH INJECTION. LAST RECOVERY HR OF 121 BP 124/60. PT IN STABLE CONDITION, AWAITING NUCLEAR IMAGES.
--- NOTE | 2019-07-04 15:41 | NUR ---
PT. REFUSED AEROSOL TREATMENT AT THIS TIME.
[2019-07-04 16:00] VITALS: BP 130/60
[2019-07-04 20:00] VITALS: BP 119/63
--- NOTE | 2019-07-04 21:48 | NUR ---
PATIENT ADMINISTERED WITH RESTORIL PRN FOR COMPLAINTS OF NOT BEING ABLE TO SLEEP, AND RESTLESSNESS. RN WILL CONTINUE TO MONITOR
[2019-07-05] VITALS: BP 110/60
[2019-07-05 07:18] LABS: HEMATOCRIT 36.9 % (37.0-47.0); HEMOGLOBIN 12.1 g/dl (12.0-16.0); MEAN CELL VOLUME 90.9 fl (81.0-99.0); MEAN CORPUSCULAR HGB 29.8 pg (27.0-31.0); MEAN CORPUSCULAR HGB CONC 32.8 g/dl (33.0-37.0); MEAN PLATELET VOLUME 9.9 fl (9.6-12.3); PLATELET COUNT AUTOMATED 385 10*3/uL (130-400); RED BLOOD COUNT 4.06 10*6/uL (4.10-5.10); RED CELL DISTRI WIDTH 15.3 % (0-14.5); WHITE BLOOD COUNT 17.4 10*3/uL (4.8-10.8)
[2019-07-05 07:36] LABS: BUN 14 mg/dl (7-24); CHLORIDE 110 mmol/L (98-107); CREATININE 1.08 mg/dL (0.55-1.02); POTASSIUM 4.1 mmol/L (3.5-5.1); SODIUM 142 mmol/L (136-145)
[2019-07-05 07:58] LABS: ATYPICAL LYMPHS 2 % (0-0); PLATELET SUFFICIENCY NORMAL (NORMAL); TOTAL CELLS COUNTED 100 #CELLS
--- NOTE | 2019-07-05 08:00 | NUR ---
IN TO ROOM. PT AWAKE, ALERT AND ORIENTED. PLEASANT AND COOPERATIVE WITH CARE AND ASSESSMENT. COMPLAINTS OF NAUSEA AT THIS TIME. RESPIRATIONS EASY AND REGULAR. NO S/S OF DISTRESS OR SOB. BED IN LOWEST LOCKED POSITION AND CALL LIGHT WITHIN REACH. WILL CONTINUE TO MONITOR.
--- NOTE | 2019-07-05 08:45 | NUR ---
PT HAD 1 EPISODE OF EMESIS. PRN ZOFRAN ADMINISTERED AT THIS TIME. WILL MONITOR FOR EFFECTIVENESS.
[2019-07-05 09:00] VITALS: BP 105/72
--- NOTE | 2019-07-05 10:30 | NUR ---
PT HAD ANOTHER EPISODE OF EMESIS. DR. MOURA NOTIFIED AND PHENERGAN ORDER OBTAINED.
--- NOTE | 2019-07-05 11:00 | NUR ---
PT STILL COMPLAINING OF NAUSEA AND VOMITTING. PHENERGAN ADMINISTERED AT THIS TIME. WILL MONITOR FOR EFFECTIVENESS.
--- NOTE | 2019-07-05 11:55 | NUR ---
PT SLEEPING IN BED. NO S/S OF DISTRESS. NO SOB NOTED. PRN PHENERGAN CONSIDERED EFFECTIVE. BED IN LOWEST LOCKED POSITION AND CALL LIGHT WITHIN REACH. WILL CONTINUE TO MONITOR.
[2019-07-05 12:00] VITALS: BP 111/68
[2019-07-05 16:00] VITALS: BP 110/64
--- NOTE | 2019-07-05 19:21 | NUR ---
DR. URBANO CALLED PER DR. MOURA REQUEST TO HAVE HIM READ PATIENT STRESS TEST FROM TODAY. UNABLE TO LEAVE MESSAGE AT THIS TIME MAILBOX WAS FULL.
--- NOTE | 2019-07-05 19:28 | NUR ---
MESSAGE LEFT FOR DR. SOTO TO RETURN CALL FOR INFORMATION ON NEW CONSULT ON THIS PATIENT.
--- NOTE | 2019-07-05 19:32 | NUR ---
24 HOUR CHART CHECK COMPLETED
--- NOTE | 2019-07-05 19:43 | NUR ---
DR. URBANO NOTIFIED AT THIS TIMEOF DR. MOURA REQUEST FOR HIM TO READ PATIENT STRESS TEST FROM TODAY, HE STATED HE WOULD TRY AND REVIEW IT TONIGHT OR FIRST THING IN AM.
[2019-07-05 20:00] VITALS: BP 110/69
--- NOTE | 2019-07-05 20:15 | NUR ---
PATIENT ASSESSMENT COMPLETED AT THIS TIME WITHOUT INCIDENT. PATIENT HAD A MODERATE EMESIS AT 1930 WHICH THIS NURSE WAS AWARE OF AND MEDICATED PATIENT FOR NAUSEA WHICH IS PERSISTANT, DR NOLASCO NOTIFED AND ORDERS RECEIVED, SEE EMAR. PATIENT REFUSED MUCINEX AT THIS TIME DUE TO NAUSEA. CALL LIGHT WITHIN REACH WILL CONTINUE TO MONITOR.
--- NOTE | 2019-07-05 22:20 | NUR ---
DR. SOTO NOTIFIED OF CONSULT ORDERS RECEIVED FOR AM. HE WANTS CALLED WITH RESULTS OF CT AND ABDOMINAL XRAY AT 0900
[2019-07-06] VITALS: BP 98/52
[2019-07-06 08:00] VITALS: BP 118/62
[2019-07-06 12:00] VITALS: BP 103/58
[2019-07-06 16:00] VITALS: BP 105/68
[2019-07-06 20:00] VITALS: BP 120/73
--- NOTE | 2019-07-06 20:23 | NUR ---
CALLED DR MOURA PER PATIENT REQUEST. SHE STATES SHE IS HAVING PAIN 5/10 AND DOES NOT THINK THAT THE TYLENOL PRN WILL BE EFFECTIVE AND IS ASKING FOR SOMETHING STRONGER. DR. MOURA WANTS A TORADOL X1 IV.
--- NOTE | 2019-07-06 20:23 | NUR ---
PATIENT ATTEMPTED TO HAVE BM AT THIS TIME, FLEETS ENEMA PROVIDED. ONLY SMALL AMOUNT OF HARD STOOL PRODUCED. PATIENT C/O OF ABDOMINAL PAIN.
--- NOTE | 2019-07-06 20:36 | NUR ---
PT STATES THAT SHE IS HAVING PAIN IN HER ABDOMEN WHICH SHE RATES A 5/10. TORADOL IV IS GIVEN AT THIS TIME. WILL CHECK PATIENT AGAIN TO SEE IF SHE HAS ANY RELIEF OF PAIN.
--- NOTE | 2019-07-06 21:14 | NUR ---
PT STATES THAT HER PAIN HAS DECREASED SOME AND RATES IT A 3/10. SHE NOTES THAT SHE IS STILL FEELING NAUSOUS AT THIS TIME. WILL GIVE PHENERGAN TO HELP WITH PATIENTS SYMPTOMS.
--- NOTE | 2019-07-06 21:28 | NUR ---
PATIENT MEDICATED WITH PHENERGAN IV FOR NAUSEA. WILL MONITOR
--- NOTE | 2019-07-06 21:36 | NUR ---
TORADOL EFFECTIVE FOR ABD PAIN
[2019-07-07] VITALS: BP 104/59
--- NOTE | 2019-07-07 00:27 | NUR ---
24 HR chart check completed.
--- NOTE | 2019-07-07 03:43 | NUR ---
SLEEPING, RESP ARE ERND, NO DISTRESS NOTED. CALL LIGTH WITHIN REACH
[2019-07-07 08:00] VITALS: BP 114/70
--- NOTE | 2019-07-07 09:36 | NUR ---
ZOFRAN GIVEN FOR NAUSEA AND VOMITING. WILL CONT TO MONITOR. CALL LIGHT IN REACH.
--- NOTE | 2019-07-07 10:36 | NUR ---
IV RAMSES EFF AT THIS TIME. WILL CONT TO MONITOR. CALL LIGHT IN REACH.
[2019-07-07 12:00] VITALS: BP 122/72
--- NOTE | 2019-07-07 12:57 | NUR ---
PHENERGAN GIVEN AT THIS TIME FOR EMESIS. WILL CONT TO MONITOR. CALL LIGHT IN REACH.
--- NOTE | 2019-07-07 13:57 | NUR ---
JESSICA EFF. WILL CONT TO MONITOR. CALL LIGHT IN REACH.
--- NOTE | 2019-07-07 15:40 | NUR ---
LACTULOSE GIVEN FOR CONSTIPATION. WILL CONT TO MONITOR. CALL LIGHT IN REACH.
[2019-07-07 16:00] VITALS: BP 110/71
--- NOTE | 2019-07-07 17:38 | NUR ---
TYLENOL GIVEN FOR C/O HEADACHE. DULCOLAX SUPP GIVEN FOR NO BM. WILL CONT TO MONITOR. CALL LIGHT IN REACH.
[2019-07-07 20:00] VITALS: BP 113/65
--- NOTE | 2019-07-07 20:00 | NUR ---
Patient resting quietly with no c/o discomfort. Respirations easy and regular. Vital signs stable. No overt distress. MERVAT STEIN
--- NOTE | 2019-07-07 22:00 | NUR ---
PT GIVEN PRN TEMAZEPAM PO TO HELP HER FALL ASLEEP PER PT REQUEST. WILL CONTINUE TO MONITOR PATIENT. CALL LIGHT WITHIN REACH.
--- NOTE | 2019-07-07 23:30 | NUR ---
PT IS REQUESTING ZOFRAN DUE TO AN UPSET STOMACH. ZOFRAN IV IS GIVEN AT THIS TIME. WILL CONTINUE TO MONITOR PATIENT.
[2019-07-08] VITALS: BP 121/62
--- NOTE | 2019-07-08 01:19 | NUR ---
24 HR chart check completed.
--- NOTE | 2019-07-08 01:41 | NUR ---
TEMAZEPAM AND ZOFRAN ARE EFFECTIVE PER PT IS SLEEPING IN BED. WILL CONTINUE TO MONITOR THE PATIENT
--- NOTE | 2019-07-08 04:00 | NUR ---
SLEEPING, EYES CLOSED. NODISTRESS NOTED. CALL LIGHT WITHIN REACH
[2019-07-08 06:10] LABS: HEMATOCRIT 39.8 % (37.0-47.0); HEMOGLOBIN 13.1 g/dl (12.0-16.0); MEAN CELL VOLUME 91.7 fl (81.0-99.0); MEAN CORPUSCULAR HGB 30.2 pg (27.0-31.0); MEAN CORPUSCULAR HGB CONC 32.9 g/dl (33.0-37.0); MEAN PLATELET VOLUME 9.4 fl (9.6-12.3); PLATELET COUNT AUTOMATED 423 10*3/uL (130-400); RED BLOOD COUNT 4.34 10*6/uL (4.10-5.10); RED CELL DISTRI WIDTH 15.5 % (0-14.5); WHITE BLOOD COUNT 22.8 10*3/uL (4.8-10.8)
[2019-07-08 06:28] LABS: BUN 12 mg/dl (7-24); CHLORIDE 107 mmol/L (98-107); PHOSPHOROUS 2.9 mg/dL (2.5-4.9); POTASSIUM 3.5 mmol/L (3.5-5.1); SGOT/AST 18 IU/L (3-35); SGPT/ALT 28 U/L (12-78); SODIUM 138 mmol/L (136-145)
[2019-07-08 06:29] LABS: ALKALINE PHOSPHATASE 61 U/L (45-117); TOTAL PROTEIN 6.5 gm/dL (6.4-8.2)
[2019-07-08 06:53] LABS: ATYPICAL LYMPHS 2 % (0-0); PLATELET SUFFICIENCY HIGH (NORMAL); TARGET CELLS FEW; TOTAL CELLS COUNTED 100 #CELLS
[2019-07-08 06:54] LABS: BURR CELLS FEW; HOWELL-JOLLY BODIES FEW; SCHISTOCYTES FEW
[2019-07-08 08:00] VITALS: BP 126/74
--- NOTE | 2019-07-08 10:30 | NUR ---
[employer] in to see patient. No new needs or request at this time. She denies any home needs. When medically stable she will be discharged to home. Per multidisciplinary discharge planning meeting treating COPD and awaiting Dr. Garces input for epigastric pain.
[2019-07-08 12:00] VITALS: BP 141/90
--- NOTE | 2019-07-08 13:39 | NUR ---
PT C/O CHEST PRESSURE DURING INSPIRATION AND SOB. DR ZEPEDA NOTIFIED AND ORDER TORADOL X1 IV NOW.
--- NOTE | 2019-07-08 15:31 | NUR ---
PT CONTINUES TO C/O SHAKINESS, DIZZINESS, SOB AND TIGHTNESS/PRESSURE/SORENESS TO CHEST WITH DEEP BREATHING. DR ZEPEDA NOTIFIED AND NEW ORDER RECEIVED FOR CTA OF CHEST.
[2019-07-08 16:00] VITALS: BP 133/75
[2019-07-08 20:00] VITALS: BP 136/54
[2019-07-09] VITALS (8 sets, daily range): BP systolic 106–128; BP diastolic 55–77
--- NOTE | 2019-07-09 01:38 | NUR ---
24 HR chart check completed.
--- NOTE | 2019-07-09 02:21 | NUR ---
TEMAZEPAM IS EFFECTIVE PER THE PATIENT IS SLEEPING. WILL CONTINUE TO MONITOR PATIENT.
--- NOTE | 2019-07-09 02:36 | NUR ---
PT REQUESTING A TEMAZEPAM AT THIS TIME TO HELP HER FALL ASLEEP. PO TEMAZEPAM IS GIVEN AT THIS TIME. WILL CONTINUE TO MONITOR THE PATIENT
[2019-07-09 06:03] LABS: HEMATOCRIT 36.8 % (37.0-47.0); HEMOGLOBIN 11.9 g/dl (12.0-16.0); MEAN CELL VOLUME 91.8 fl (81.0-99.0); MEAN CORPUSCULAR HGB 29.7 pg (27.0-31.0); MEAN CORPUSCULAR HGB CONC 32.3 g/dl (33.0-37.0); MEAN PLATELET VOLUME 9.3 fl (9.6-12.3); PLATELET COUNT AUTOMATED 385 10*3/uL (130-400); RED BLOOD COUNT 4.01 10*6/uL (4.10-5.10)
[2019-07-09 06:14] LABS: BUN 10 mg/dl (7-24); CHLORIDE 113 mmol/L (98-107); CREATININE 0.94 mg/dL (0.55-1.02); POTASSIUM 3.7 mmol/L (3.5-5.1); SODIUM 142 mmol/L (136-145)
[2019-07-09 07:25] LABS: ACANTHOCYTES FEW; BASOPHILS 1 % (0-1); SCHISTOCYTES FEW; TOTAL CELLS COUNTED 100 #CELLS
[2019-07-09 07:26] LABS: HOWELL-JOLLY BODIES FEW; PLATELET SUFFICIENCY NORMAL (NORMAL); TARGET CELLS FEW
[2019-07-09 07:33] LABS: SPHEROCYTES FEW
--- NOTE | 2019-07-09 09:00 | NUR ---
Oracle Adf Developer in to see patient. No new needs or request at this time. She denies any home needs. When medically stable she will be discharged to home. She is scheduled for an EGD today.
--- NOTE | 2019-07-09 09:38 | NUR ---
PATIENT OFF FLOOR FOR SCHEDULED PROCEDURE.
--- NOTE | 2019-07-09 11:10 | NUR ---
CALLED REGARDING PLAN OF CARE.
--- NOTE | 2019-07-09 12:07 | NUR ---
PT RETURNED TO ROOM FROM SCHEDULED PROCEDURE.
[2019-07-09] MEDS ORDERED: PROTONIX40 MG PO (15:43)
[2019-07-09] MEDS ORDERED: ARMOUR THYROID90 M1 PO (15:43)
--- NOTE | 2019-07-09 16:17 | NUR ---
Discharge instructions reviewed with patient/family. Patient receptive and verbalizes understanding. Follow-up care arranged. Written instructions given to patient/family. HEATHER DAY.
== END 2019-07-09 16:17 | disposition home or self-care (01) | DRG 243 ==
LOC: ED 13:25 → EDHOLD 15:21 → 4E 15:21
PROVIDERS: Emergency Medicine; Student in an Organized Health Care Education/Training Program; ADMIT Internal Medicine
PROC: 4A02XM4 Measurement of Cardiac Total Activity, External Approach (ICD-10-PCS; 2019-07-04)
PROC: 3E073KZ Introduction of Other Diagnostic Substance into Coronary Artery, Percutaneous Approach (ICD-10-PCS; 2019-07-04)
PROC: 0DB78ZX Excision of Stomach, Pylorus, Via Natural or Artificial Opening Endoscopic, Diagnostic (ICD-10-PCS; principal; 2019-07-08)
DX: K21.9 Gastro-esophageal reflux disease without esophagitis (principal); J44.1 Chronic obstructive pulmonary disease with (acute) exacerbation; E86.0 Dehydration; R73.9 Hyperglycemia, unspecified; E66.9 Obesity, unspecified; G43.909 Migraine, unspecified, not intractable, without status migrainosus; K59.00 Constipation, unspecified; D86.9 Sarcoidosis, unspecified; E03.9 Hypothyroidism, unspecified; F32.9 Major depressive disorder, single episode, unspecified; R11.15 Cyclical vomiting syndrome unrelated to migraine; K29.70 Gastritis, unspecified, without bleeding; I25.10 Atherosclerotic heart disease of native coronary artery without angina pectoris; K44.9 Diaphragmatic hernia without obstruction or gangrene; E78.5 Hyperlipidemia, unspecified; K25.9 Gastric ulcer, unspecified as acute or chronic, without hemorrhage or perforation; K22.70 Barrett's esophagus without dysplasia; Z86.73 Personal history of transient ischemic attack (TIA), and cerebral infarction without residual deficits; Z90.81 Acquired absence of spleen; Z98.891 History of uterine scar from previous surgery; Z98.51 Tubal ligation status; Z82.49 Family history of ischemic heart disease and other diseases of the circulatory system; Z83.3 Family history of diabetes mellitus; Z80.8 Family history of malignant neoplasm of other organs or systems; Z79.82 Long term (current) use of aspirin; Z68.32 Body mass index [BMI] 32.0-32.9, adult

== ENCOUNTER → 2019-09-23 | Outpatient (CLI) | payer OTHER ==
[~2019-09-23] MED LIST changes: +PROTONIX40 MG PO; +Ventolin 02.5 MG/3 M INH
== END | disposition home or self-care (01) ==
LOC: MAMMO 09-03 10:30
DX: Z12.31 Encounter for screening mammogram for malignant neoplasm of breast (principal)

== ENCOUNTER → 2020-03-24 | Outpatient (CLI) | payer OTHER | END | disposition home or self-care (01) | LOC: US 09:24 | DX: N20.0 Calculus of kidney (principal); K80.20 Calculus of gallbladder without cholecystitis without obstruction; K76.0 Fatty (change of) liver, not elsewhere classified; Z90.81 Acquired absence of spleen ==

== ENCOUNTER 2020-03-30 10:51 | Inpatient (IN) | payer OTHER ==
[~2020-03-30] VITALS: Ht 157.5 cm; Wt 81.8 kg
[2020-03-30 11:14] VITALS: BP 138/98
[2020-03-30 12:03] LABS: BASO # 0.1 10*3/uL (0.0-0.1); BASO % 0.9 % (0.0-1.0); EOS # 0.2 10*3/uL (0.0-0.4); EOS % 2.2 % (1.0-4.0); HEMATOCRIT 41.9 % (37.0-47.0); LYMPH # 4.1 10*3/uL (1.3-4.4); LYMPH % 48.5 % (27.0-41.0); MEAN CELL VOLUME 88.4 fl (81.0-99.0); MEAN CORPUSCULAR HGB 28.9 pg (27.0-31.0); MEAN CORPUSCULAR HGB CONC 32.7 g/dl (33.0-37.0); MEAN PLATELET VOLUME 10.5 fl (9.6-12.3); MONO # 0.8 10*3/uL (0.1-1.0); MONO % 9.3 % (3.0-9.0); NEUT # 3.3 10*3/uL (2.3-7.9); NEUT % 38.9 % (47.0-73.0); PLATELET COUNT AUTOMATED 314 10*3/uL (130-400); RED BLOOD COUNT 4.74 10*6/uL (4.10-5.10); RED CELL DISTRI WIDTH 14.8 % (0-14.5); WHITE BLOOD COUNT 8.5 10*3/uL (4.8-10.8)
[2020-03-30 12:15] LABS: ACT PARTIAL THROMBO TIME 27.7 SECONDS (20.0-32.1)
[2020-03-30 12:20] LABS: ALBUMIN 3.3 gm/dl (3.1-4.5); ALKALINE PHOSPHATASE 60 U/L (45-117); BUN 10 mg/dl (7-24); CHLORIDE 113 mmol/L (98-107); CREATININE 1.02 mg/dL (0.55-1.02); LIPASE 132 U/L (73-393); POTASSIUM 3.5 mmol/L (3.5-5.1); SGOT/AST 19 IU/L (3-35); SGPT/ALT 27 U/L (12-78); SODIUM 140 mmol/L (136-145); TOTAL PROTEIN 7.1 gm/dL (6.4-8.2)
[2020-03-30 12:25] LABS: TROPONIN I < 0.015 ng/ml (<0.045)
[2020-03-30 12:43] LABS: WBC 0-2 wbc/hpf (0-5)
[2020-03-30 13:13] VITALS: BP 142/82
--- NOTE | 2020-03-30 13:17 | NUR ---
AN UPDATED SET OF VITALS WERE OBTAINED. THE PATIENT IS LYING ON THE BED. CALL LIGHT IS ATTACHED TO THE BED RAIL
[2020-03-30 13:18] LABS: COLOR YELLOW (YELLOW)
--- NOTE | 2020-03-30 13:18 | NUR ---
THE LAB WAS CALLED FOR THE RESULTS OF THE UA.
[2020-03-30 13:19] LABS: BILIRUBIN NEGATIVE (NEGATIVE); BLOOD NEGATIVE (NEGATIVE); CLARITY SL CLOUDY (CLEAR); GLUCOSE NEGATIVE (NEGATIVE); KETONE TRACE (NEGATIVE); LEUKO ESTERASE NEGATIVE (NEGATIVE); NITRITE NEGATIVE (NEGATIVE); PH 8.5 (5.0-9.0); SPECIFIC GRAVITY 1.005 (1.005-1.030); UROBILINOGEN 0.2 E.U./dl (0.2-1.0)
--- NOTE | 2020-03-30 14:30 | NUR ---
THE PATIENT DENIES ANY WOUNDS
--- NOTE | 2020-03-30 15:22 | NUR ---
Time: 1521 A 49 year old FEMALE admitted to under services of DR. ZENY DIOR,[facility]. Pt. arrived via bed from ER. Chief complaint: ABD PAIN, NAUSEA, VOMITING. RAMSEY MORALES
[2020-03-30] MEDS ORDERED: TOPCARE OMEPRAZ20 MG PO (15:29)
[2020-03-30] MEDS ORDERED: ARMOUR THYROID90 M1 PO (15:29)
[2020-03-30] MEDS ORDERED: PROAIR HFA8.5 GM INH (15:31)
[2020-03-30 16:00] VITALS: BP 118/79
--- NOTE | 2020-03-30 16:16 | NUR ---
SPOKE WITH , ORDERS RECEIVED.
--- NOTE | 2020-03-30 18:29 | NUR ---
PATIENT MEDICATED WITH IV ZOFRAN AT THIS TIME FOR COMPLAINTS OF NAUSEA. WILL MONITOR FOR EFFECTIVENESS.
--- NOTE | 2020-03-30 19:20 | NUR ---
PRN ZOFRAN SOMEWHAT EFFECTIVE PER PT
[2020-03-30 20:00] VITALS: BP 115/69
--- NOTE | 2020-03-30 21:26 | NUR ---
PRN MORPHINE GIVEN FOR PT COMPLAINTS OF PAIN RATING IT 6/10. IN THE RIGHT SIDE OF THE ABD. CALL LIGHT WITHIN REACH, WILL MONITOR
--- NOTE | 2020-03-30 22:15 | NUR ---
SPOKE WITH DR. NEAL AT THIS TIME. NOTIFIED HIM PATIENT COMPLAINING OF NAUSEA AFTER EATING. ZOFRAN GIVEN EARLIER. NEW ORDER RECIEVED FOR PHENERGAN 12.5MG NOW
--- NOTE | 2020-03-30 22:16 | NUR ---
PATIENT STATES MORPHINE MOSTLY EFFECTIVE FOR PAIN. STATES SHE IS NOW NAUSEATED AFTER EATING CRCKERS. ONE TIME DOSE OF PHENERGAN 12.[address] NEAL
--- NOTE | 2020-03-30 22:37 | NUR ---
ONE TIME DOSE OF PHENERGAN GIVEN AT THIS TIME
--- NOTE | 2020-03-30 23:00 | NUR ---
PHENERGAN EFFECTIVE AT THIS TIME PER PT
[2020-03-31] VITALS: BP 100/60
--- NOTE | 2020-03-31 01:03 | NUR ---
PATIENT SLEEPING. NO DISTRESS NOTED. IV FLUIDS INFUSING. CALL LIGHT WITHIN REACH, WILL MONITOR
--- NOTE | 2020-03-31 02:46 | NUR ---
PRN ZOFRAN GIVEN FOR PT COMPLAINTS OF NAUSEA. CALL LIGHT WITHIN REACH, WILL MONITOR
--- NOTE | 2020-03-31 02:51 | NUR ---
PRN MORPHINE GIVEN FOR PT COMPLAINTS OF RIGHT SIDED ABDOMINAL PAIN RATING IT 5/10. CALL LIGHT WITHIN REACH, WILL MONITOR
--- NOTE | 2020-03-31 02:58 | NUR ---
24 HR chart check completed.
--- NOTE | 2020-03-31 03:15 | NUR ---
PRN MORPHINE APPEARS EFFECTIVE, PT SLEEPING
--- NOTE | 2020-03-31 06:15 | NUR ---
PT DENIES NEED FOR ANY PAIN MEDICATION OR ZOFRAN. CALL LIGHT WITHIN REACH, WILL MOIZ
[2020-03-31 06:52] LABS: BASO # 0.1 10*3/uL (0.0-0.1); BASO % 0.8 % (0.0-1.0); EOS # 0.2 10*3/uL (0.0-0.4); EOS % 3.1 % (1.0-4.0); HEMATOCRIT 41.6 % (37.0-47.0); LYMPH # 4.2 10*3/uL (1.3-4.4); LYMPH % 54.6 % (27.0-41.0); MEAN CORPUSCULAR HGB 29.4 pg (27.0-31.0); MEAN CORPUSCULAR HGB CONC 32.7 g/dl (33.0-37.0); MEAN PLATELET VOLUME 10.4 fl (9.6-12.3); MONO # 0.7 10*3/uL (0.1-1.0); MONO % 9.4 % (3.0-9.0); NEUT # 2.5 10*3/uL (2.3-7.9); NEUT % 31.8 % (47.0-73.0); PLATELET COUNT AUTOMATED 307 10*3/uL (130-400); RED BLOOD COUNT 4.62 10*6/uL (4.10-5.10); RED CELL DISTRI WIDTH 15.1 % (0-14.5); WHITE BLOOD COUNT 7.7 10*3/uL (4.8-10.8)
[2020-03-31 07:30] LABS: CHLORIDE 113 mmol/L (98-107); POTASSIUM 3.8 mmol/L (3.5-5.1); SODIUM 141 mmol/L (136-145)
[2020-03-31 07:39] LABS: ALBUMIN 3.1 gm/dl (3.1-4.5); ALKALINE PHOSPHATASE 54 U/L (45-117); BUN 7 mg/dl (7-24); CHOLESTEROL 230 mg/dL (<200); CREATININE 0.94 mg/dL (0.55-1.02); HDL CHOLESTEROL 44 mg/dl (40-60); LDL CHOLESTEROL 122 mg/dL (9-159); SGOT/AST 16 IU/L (3-35); SGPT/ALT 24 U/L (12-78); TOTAL PROTEIN 6.5 gm/dL (6.4-8.2); TRIGLYCERIDES 318 mg/dl (<150); VLDL CHOLESTEROL 64 mg/dL (6-40)
[2020-03-31 08:00] VITALS: BP 105/62
[2020-03-31 08:03] LABS: VITAMIN D, 25-HYDROXY 42.1 ng/mL (30-100)
--- NOTE | 2020-03-31 08:30 | NUR ---
PATIENT MEDICATED WITH IV ZOFRAN & IV MOPRHINE AT THIS TIME PER ORDER FOR COMPLAINTS OF NAUSEA & RUQ ABD PAIN 04/05, WILL MONITOR FOR EFFECTIVENESS.
--- NOTE | 2020-03-31 09:30 | NUR ---
PER PATIENT, PRN ZOFRAN & MORPHINE HAVE BEEN EFFECTIVE. NO NEEDS AT THIS TIME.
--- NOTE | 2020-03-31 11:29 | NUR ---
Dbas in to talk to patient. Patient states lives at home with her fiance. There are 2 steps in the home. Physician: Dr. Khurram Garner [facility]acy: [facility] Home health services: none Patient's level of ADLs: INDEPENDENT Patient has working utilities: yes DME: none Follow-up physician's appointment after d/c: she prefers to make her own follow up appt after discharge Does patient want to access PORTAL?: no Discharge plan discussed with patient. She lives at home with her fiance. She is independent in her ADLs and ambulation. Discussed home health care services and she declines. CM will continue to follow for any discharge planning needs. She says a nurse comes to her house every 6 months from her insurance company to check on her needs. When medically stable she will be discharged to home. She states her fiance will provide transportation upon discharge. She asked if her fiance could come in tomorrow prior to her surgery and stay to talk to the doctor after her surgery because he is her advocate due to her memory issues from her sarcoidosis. Discussed with inpatient assistant housekeeping manager and was given clearance for her fiance to come in. NIKUNJ RODRIGUEZ
[2020-03-31 12:00] VITALS: BP 104/65
--- NOTE | 2020-03-31 13:29 | NUR ---
PT MEDICATED WITH MORPHINE PER ORDER FOR COMPLAINTS OF PAIN IN RUQ ABD. WILL MONITOR FOR EFFECTIVENESS.
--- NOTE | 2020-03-31 14:29 | NUR ---
PER PATIENT, PAIN MED WAS EFFECTIVE. MUCH MORE COMFORTABLE AT THIS TIME.
--- NOTE | 2020-03-31 15:15 | NUR ---
PT MEDICATED WITH ZOFRAN PER ORDER FOR COMPLAINTS OF NAUSEA. WILL MONITOR FOR EFFECTIVENESS.
[2020-03-31 16:00] VITALS: BP 110/61; BP 110/69
--- NOTE | 2020-03-31 19:15 | NUR ---
NOTIFIED THAT PATIENT IS STILL NAUSEATED AND IT IS NOT YET TIME FOR ZOFRAN. ONE TIME DOSE ORDERED AND GIVEN OF PHENERGAN. WILL MONITOR FOR EFFECTIVENESS.
--- NOTE | 2020-03-31 19:33 | NUR ---
PATIENT RESTING IN BED WITH IV FLUIDS INFUSING PER ORDER. STATES PHENERGAN IS STARTING TO WORK FOR NAUSEA. C/O PAIN IN ABD. ENCOURAGED TO WALK AND DEEP BREATH, VERBALIZED UNDERSTANDING. BED IN LOWEST POSITION, CALL LIGHT IN REACH
[2020-03-31 20:00] VITALS: BP 113/71
--- NOTE | 2020-03-31 20:00 | NUR ---
MEDICATED WITH PRN MORPHINE FOR C/O ABD PAIN RATED 5/10 ON A 0/10 PAIN SCALE. WILL MONITOR
--- NOTE | 2020-03-31 20:57 | NUR ---
MORPHINE EFFECTIVE PER PATIENT
[2020-04-01] VITALS (10 sets, daily range): BP systolic 110–130; BP diastolic 59–80
--- NOTE | 2020-04-01 07:20 | NUR ---
TAKEN DOWN TO SURGERY
[2020-04-01 07:36] LABS: BUN 9 mg/dl (7-24); CHLORIDE 114 mmol/L (98-107); CREATININE 0.99 mg/dL (0.55-1.02); SGOT/AST 17 IU/L (3-35); SGPT/ALT 23 U/L (12-78); SODIUM 141 mmol/L (136-145); TOTAL PROTEIN 6.3 gm/dL (6.4-8.2)
[2020-04-01 07:37] LABS: ALKALINE PHOSPHATASE 55 U/L (45-117)
--- NOTE | 2020-04-01 09:00 | NUR ---
CM in to see patient. She is currently not in her room. She is in surgery. Will follow up at a later time.
--- NOTE | 2020-04-01 13:02 | NUR ---
PT INSTRUCTED ON USE OF INCENTIVE SPIROMETER. PT WAS ABLE TO ACHIEVE 1500 CC WITH GOOD EFFORT. PT INSTRUCTED TO USE Q1 HOUR W/A. PT ASSESSED FOR DRUG AEROSOL. BREATH SOUNDS CLEAR. NOT INDICATED AT THIS TIME. PT AWARE TREATMENTS ARE ORDERED AND AVAILABLE TO HER IF SHE WANTS ONE. PT DOES NOT WANT ANY AT THIS TIME.
--- NOTE | 2020-04-01 14:58 | NUR ---
MEDICATED WITH NORCO FOR COMPLAINTS OF BACK PAIN AND INCISIONAL PAIN. RATES PAIN A 6 ON A PAIN SCALE 0F 1-10
--- NOTE | 2020-04-01 15:20 | NUR ---
ATTEMPTED INCENTIVE SPIROMETRY INSTRUCTION. PT REQUESTS THAT I COME BACK AT A LATER TIME DUE TO SLEEPINESS.
--- NOTE | 2020-04-01 15:42 | NUR ---
RESTING WITH EYES CLOSED ON RIGHT SIDE. NORDAMASO EFFECTIVE
--- NOTE | 2020-04-01 19:53 | NUR ---
ASSUMED CARE FOR THIS PT AT THIS TIME. PT C/O RUQ PAIN 12/04. MEDICATED W/PO NORCO. NO DRAINAGE NOTED FROM INCISION SITES. PT STATES SHE IS PASSING FLATUS. ENCOURAGED AMBULATION. PT AGREEABLE. SCD'S ON. CALL LIGHT IN REACH.
--- NOTE | 2020-04-01 20:53 | NUR ---
PT STATES NORCO WAS EFFECTIVE FOR PAIN RELIEF. PAIN RATED AT A 2/10 NOW.
[2020-04-02] VITALS: BP 104/52
--- NOTE | 2020-04-02 04:46 | NUR ---
PT C/O NAUSEA. MEDICATED W/IVP ZOFRAN. WILL MONITOR FOR EFFECTIVENESS.
--- NOTE | 2020-04-02 05:12 | NUR ---
24 HR chart check completed.
--- NOTE | 2020-04-02 05:46 | NUR ---
PT STATES SHE NO LONGER HAS NAUSEA. PRN ZOFRAN EFFECTIVE.
--- NOTE | 2020-04-02 06:17 | NUR ---
PT C/O RUQ ABD PAIN AND GAS PAIN. PT MOVING ARMS AND AMBULATING. RATES PAIN 4/10. MEDICATED W/PO NORCO.
[2020-04-02 06:30] LABS: HEMATOCRIT 38.9 % (37.0-47.0); MEAN CORPUSCULAR HGB 29.2 pg (27.0-31.0); MEAN CORPUSCULAR HGB CONC 32.4 g/dl (33.0-37.0); MEAN PLATELET VOLUME 10.8 fl (9.6-12.3); PLATELET COUNT AUTOMATED 289 10*3/uL (130-400); RED BLOOD COUNT 4.32 10*6/uL (4.10-5.10); RED CELL DISTRI WIDTH 15.5 % (0-14.5); WHITE BLOOD COUNT 21.9 10*3/uL (4.8-10.8)
--- NOTE | 2020-04-02 06:49 | NUR ---
PT STATES PRN NORCO EFFECTIVE FOR PAIN RELIEF.
[2020-04-02 06:59] LABS: ALBUMIN 2.9 gm/dl (3.1-4.5); ALKALINE PHOSPHATASE 57 U/L (45-117); BUN 7 mg/dl (7-24); CHLORIDE 115 mmol/L (98-107); CREATININE 0.87 mg/dL (0.55-1.02); POTASSIUM 4.1 mmol/L (3.5-5.1); SGOT/AST 29 IU/L (3-35); SGPT/ALT 32 U/L (12-78); SODIUM 140 mmol/L (136-145); TOTAL PROTEIN 6.4 gm/dL (6.4-8.2)
[2020-04-02 07:34] LABS: PLATELET SUFFICIENCY NORMAL (NORMAL); TOTAL CELLS COUNTED 100 #CELLS
[2020-04-02 08:00] VITALS: BP 110/60
--- NOTE | 2020-04-02 09:00 | NUR ---
case management visits with patient, she states she will return home when discharged, possibly today and denies any home needs,
--- NOTE | 2020-04-02 10:04 | NUR ---
NORCO 5/325 GIVEN PER PT REQUEST FOR ABDONMINAL PAIN RATING A 3/10. VIRI NEAL
--- NOTE | 2020-04-02 11:00 | NUR ---
NO FURTHER COMPLAINTS OF PAIN. NORCO EFFECTIVE.
[2020-04-02 12:00] VITALS: BP 118/62; BP 127/72
[2020-04-02] MEDS ORDERED: NORCO 5-325 TA1 EACH PO (14:00)
[2020-04-02] MEDS ORDERED: ZOFRAN4 MG PO (14:00)
--- NOTE | 2020-04-02 14:10 | NUR ---
Discharge instructions reviewed with patient/family. Patient receptive and verbalizes understanding. Follow-up care arranged. Written instructions given to patient/family. HEPLOCK DISCONTINUED. PRESCRIPTION GIVEN TO PT. POST-OP SABRINA INFORMATION GIVEN TO PATIENT. TAKEN OFF FLOOR VIA WHEELCHAIR. RAMSEY MORALES
== END 2020-04-02 14:10 | disposition home or self-care (01) | DRG 263 ==
LOC: ED 10:51 → EDHOLD 13:49 → 4E 13:49
PROVIDERS: Emergency Medicine; Internal Medicine; ADMIT Internal Medicine
PROC: 0FT44ZZ Resection of Gallbladder, Percutaneous Endoscopic Approach (ICD-10-PCS; principal; 2020-04-01)
DX: K80.10 Calculus of gallbladder with chronic cholecystitis without obstruction (principal); E83.51 Hypocalcemia; K59.00 Constipation, unspecified; J44.9 Chronic obstructive pulmonary disease, unspecified; F32.9 Major depressive disorder, single episode, unspecified; I25.10 Atherosclerotic heart disease of native coronary artery without angina pectoris; E03.9 Hypothyroidism, unspecified; R00.1 Bradycardia, unspecified; K21.9 Gastro-esophageal reflux disease without esophagitis; E87.8 Other disorders of electrolyte and fluid balance, not elsewhere classified; D86.9 Sarcoidosis, unspecified; G43.909 Migraine, unspecified, not intractable, without status migrainosus; Z98.891 History of uterine scar from previous surgery; Z98.51 Tubal ligation status; Z82.49 Family history of ischemic heart disease and other diseases of the circulatory system; Z90.81 Acquired absence of spleen; Z83.3 Family history of diabetes mellitus; Z80.8 Family history of malignant neoplasm of other organs or systems; Z86.73 Personal history of transient ischemic attack (TIA), and cerebral infarction without residual deficits; Z79.82 Long term (current) use of aspirin; Z79.899 Other long term (current) drug therapy

== ENCOUNTER → 2020-06-30 | Outpatient (CLI) | payer OTHER ==
[~2020-06-30] MED LIST changes: +NORCO 5-325 TA1 EACH PO; +PROAIR HFA8.5 GM INH; +TOPCARE OMEPRAZ20 MG PO; +ZOFRAN4 MG PO
== END | disposition home or self-care (01) ==
LOC: RAD 14:16
PROVIDERS: ATTEND Internal Medicine
DX: M79.641 Pain in right hand (principal)

== ENCOUNTER → 2020-08-23 | Outpatient (CLI) | payer OTHER | END | disposition home or self-care (01) | LOC: RAD 11:08 | PROVIDERS: ATTEND Internal Medicine | DX: M54.5 Low back pain (principal) ==

== ENCOUNTER → 2020-09-30 | Outpatient (CLI) | payer OTHER | END | disposition home or self-care (01) | LOC: RAD/SH 09-21 10:00 | PROVIDERS: ATTEND Internal Medicine | DX: T17.908D Unspecified foreign body in respiratory tract, part unspecified causing other injury, subsequent encounter (principal); X58.XXXD Exposure to other specified factors, subsequent encounter ==

== ENCOUNTER → 2021-01-11 | Outpatient (CLI) | payer OTHER ==
[2021-01-11 10:51] LABS: BUN 17 mg/dl (7-24); CHLORIDE 113 mmol/L (98-107); CHOLESTEROL 170 mg/dL (<200); CREATININE 0.98 mg/dL (0.55-1.02); LDL CHOLESTEROL 87 mg/dL (9-159); POTASSIUM 3.7 mmol/L (3.5-5.1); SGOT/AST 26 IU/L (3-35); SGPT/ALT 39 U/L (12-78); SODIUM 143 mmol/L (136-145); TRIGLYCERIDES 168 mg/dl (<150)
== END | disposition home or self-care (01) ==
LOC: LAB 10:15
PROVIDERS: ATTEND Registered Nurse
DX: I25.118 Atherosclerotic heart disease of native coronary artery with other forms of angina pectoris (principal)

== ENCOUNTER → 2021-06-22 | Outpatient (CLI) | payer OTHER | END | disposition home or self-care (01) | LOC: MAMMO 06-09 00:07 | PROVIDERS: ATTEND Internal Medicine | DX: Z12.31 Encounter for screening mammogram for malignant neoplasm of breast (principal); N64.89 Other specified disorders of breast ==

== ENCOUNTER → 2022-03-09 | Outpatient (CLI) | payer OTHER ==
[~2022-03-09] MED LIST changes: +ARICEPT10 M1 PO; +CIPROFLOXACIN500 M4 PO; +METRONIDAZOLE500 M1 PO; +Synthroid,Levo50 MCG PO
== END | disposition home or self-care (01) ==
LOC: MAMMO 01:00
PROVIDERS: ATTEND Internal Medicine
DX: N63.11 Unspecified lump in the right breast, upper outer quadrant (principal)

== ENCOUNTER → 2022-05-11 | Outpatient (CLI) | payer OTHER ==
[2022-05-11 13:15] LABS: BASO # 0.1 10*3/uL (0.0-0.1); BASO % 0.5 % (0.0-1.0); EOS # 0.1 10*3/uL (0.0-0.4); EOS % 1.2 % (1.0-4.0); HEMATOCRIT 41.9 % (37.0-47.0); LYMPH # 4.6 10*3/uL (1.3-4.4); LYMPH % 40.4 % (27.0-41.0); MEAN CELL VOLUME 88.2 fl (81.0-99.0); MEAN CORPUSCULAR HGB 29.3 pg (27.0-31.0); MEAN CORPUSCULAR HGB CONC 33.2 g/dl (33.0-37.0); MEAN PLATELET VOLUME 9.9 fl (9.6-12.3); MONO # 0.9 10*3/uL (0.1-1.0); MONO % 7.7 % (3.0-9.0); NEUT # 5.6 10*3/uL (2.3-7.9); NEUT % 49.8 % (47.0-73.0); PLATELET COUNT AUTOMATED 368 10*3/uL (130-400); RED BLOOD COUNT 4.75 10*6/uL (4.10-5.10); RED CELL DISTRI WIDTH 13.8 % (0-14.5); WHITE BLOOD COUNT 11.3 10*3/uL (4.8-10.8)
== END | disposition home or self-care (01) ==
LOC: LAB 12:51
PROVIDERS: ATTEND Nurse Practitioner Family
DX: K92.1 Melena (principal); Z87.19 Personal history of other diseases of the digestive system

== ENCOUNTER 2022-06-05 14:28 | Inpatient (IN) | payer OTHER ==
[~2022-06-05] VITALS: Ht 157.4 cm; Wt 84.6 kg
[2022-06-05 15:25] VITALS: BP 136/84
[2022-06-05 16:34] LABS: BASO # 0.1 10*3/uL (0.0-0.1); BASO % 0.7 % (0.0-1.0); EOS # 0.1 10*3/uL (0.0-0.4); EOS % 1.1 % (1.0-4.0); HEMATOCRIT 42.4 % (37.0-47.0); LYMPH # 4.3 10*3/uL (1.3-4.4); MEAN CELL VOLUME 86.9 fl (81.0-99.0); MEAN CORPUSCULAR HGB 29.3 pg (27.0-31.0); MEAN CORPUSCULAR HGB CONC 33.7 g/dl (33.0-37.0); MEAN PLATELET VOLUME 9.8 fl (9.6-12.3); MONO # 0.8 10*3/uL (0.1-1.0); MONO % 7.3 % (3.0-9.0); NEUT # 5.4 10*3/uL (2.3-7.9); NEUT % 50.6 % (47.0-73.0); PLATELET COUNT AUTOMATED 357 10*3/uL (130-400); RED BLOOD COUNT 4.88 10*6/uL (4.10-5.10); RED CELL DISTRI WIDTH 14.2 % (0-14.5); WHITE BLOOD COUNT 10.7 10*3/uL (4.8-10.8)
[2022-06-05 16:54] LABS: ALKALINE PHOSPHATASE 92 U/L (45-117); BUN 13 mg/dl (7-24); CHLORIDE 109 mmol/L (98-107); CREATININE 0.94 mg/dL (0.55-1.02); LIPASE 230 U/L (73-393); POTASSIUM 3.8 mmol/L (3.5-5.1); SGOT/AST 23 IU/L (3-35); SGPT/ALT 28 U/L (12-78); SODIUM 142 mmol/L (136-145); TOTAL PROTEIN 7.9 gm/dL (6.4-8.2)
[2022-06-05 18:39] LABS: BILIRUBIN Negative (Negative); BLOOD Negative (Negative); CLARITY Cloudy (Clear); COLOR Yellow (Yellow); GLUCOSE Negative (Negative); KETONE Negative (Negative); LEUKO ESTERASE Negative (Negative); NITRITE Negative (Negative); SPECIFIC GRAVITY 1.015 (1.001-1.030); UROBILINOGEN 0.2 E.U./dl (0.0-1.0)
[2022-06-05 18:57] LABS: CALCIUM OXALATE CRYSTALS 2+
[2022-06-05 18:58] LABS: HYALINE CAST 0-2
[2022-06-05 20:30] VITALS: BP 131/87
[2022-06-05] MEDS ORDERED: ARMOUR THYROID120 M1 PO (21:01)
[2022-06-05] MEDS ORDERED: VITAMIN E180 MG PO (21:04)
[2022-06-06] VITALS: BP 118/52
[2022-06-06 08:00] VITALS: BP 120/62
[2022-06-06 12:00] VITALS: BP 128/74
[2022-06-06 16:00] VITALS: BP 122/70
[2022-06-06 20:00] VITALS: BP 126/75
[2022-06-06 22:22] VITALS: BP 147/64
[2022-06-07] VITALS: BP 147/64
[2022-06-07 00:25] LABS: BUN 14 mg/dl (7-24); CHLORIDE 114 mmol/L (98-107); CREATININE 0.97 mg/dL (0.55-1.02); POTASSIUM 3.8 mmol/L (3.5-5.1); SODIUM 144 mmol/L (136-145)
[2022-06-07 08:00] VITALS: BP 118/68
[2022-06-07 12:00] VITALS: BP 125/77
[2022-06-07] MEDS ORDERED: METRONIDAZOLE500 M1 PO (14:27)
[2022-06-07] MEDS ORDERED: CIPRO500 MG PO (14:27)
== END 2022-06-07 17:08 | disposition home or self-care (01) | DRG 249 ==
LOC: ED 14:28 → EDHOLD 18:13 → 5E 18:13
PROVIDERS: Emergency Medicine; Internal Medicine; ADMIT Internal Medicine; ATTEND Internal Medicine
DX: K52.9 Noninfective gastroenteritis and colitis, unspecified (principal); G43.909 Migraine, unspecified, not intractable, without status migrainosus; D86.9 Sarcoidosis, unspecified; I25.10 Atherosclerotic heart disease of native coronary artery without angina pectoris; K59.00 Constipation, unspecified; E03.9 Hypothyroidism, unspecified; F32.9 Major depressive disorder, single episode, unspecified; J44.9 Chronic obstructive pulmonary disease, unspecified; E55.9 Vitamin D deficiency, unspecified; K21.9 Gastro-esophageal reflux disease without esophagitis; Z86.73 Personal history of transient ischemic attack (TIA), and cerebral infarction without residual deficits; Z98.891 History of uterine scar from previous surgery; Z98.51 Tubal ligation status; Z90.81 Acquired absence of spleen; Z82.49 Family history of ischemic heart disease and other diseases of the circulatory system; Z83.3 Family history of diabetes mellitus

== ENCOUNTER 2022-08-25 15:25 | Emergency (ER) | payer OTHER ==
[~2022-08-25 15:25] MED LIST changes: +ARMOUR THYROID120 M1 PO; +CIPRO500 MG PO; +VITAMIN E180 MG PO
== END 2022-08-25 23:47 | disposition left against medical advice (07) ==
LOC: ED 15:25
DX: Z53.21 Procedure and treatment not carried out due to patient leaving prior to being seen by health care provider (principal)

== ENCOUNTER 2022-08-28 10:02 | Emergency (ER) | payer OTHER ==
[~2022-08-28] VITALS: Ht 157.4 cm; Wt 83.5 kg
[2022-08-28 10:19] VITALS: BP 113/82
[2022-08-28] MEDS ORDERED: MEDROL DOSEPAK4 MG PO (13:19)
== END 2022-08-28 14:39 | disposition home or self-care (01) ==
LOC: ED 10:02
DX: M77.52 Other enthesopathy of left foot and ankle (principal); Z79.899 Other long term (current) drug therapy; Z98.890 Other specified postprocedural states; Z90.49 Acquired absence of other specified parts of digestive tract; Z98.51 Tubal ligation status

== ENCOUNTER → 2022-09-05 | Outpatient (CLI) | payer OTHER ==
[~2022-09-05] MED LIST changes: +MEDROL DOSEPAK4 MG PO
== END | disposition home or self-care (01) ==
LOC: US 11:00
PROVIDERS: ATTEND Podiatrist
DX: M79.605 Pain in left leg (principal); R60.9 Edema, unspecified

== ENCOUNTER → 2022-09-19 | Outpatient (CLI) | payer OTHER | END | disposition home or self-care (01) | LOC: LAB 10:55 | PROVIDERS: ATTEND Internal Medicine | DX: J02.9 Acute pharyngitis, unspecified (principal) ==

== ENCOUNTER → 2022-10-25 | Outpatient (CLI) | payer OTHER ==
[2022-10-25 11:04] LABS: BUN 9 mg/dl (9-23); CHLORIDE 104 mmol/L (98-107)
== END | disposition home or self-care (01) ==
LOC: LAB 10:16
PROVIDERS: ATTEND Internal Medicine
DX: U07.1 COVID-19 (principal)

== ENCOUNTER → 2023-02-13 | Outpatient (CLI) | payer OTHER | END | disposition home or self-care (01) | LOC: US 01:33 | PROVIDERS: ATTEND Internal Medicine | DX: R74.01 Elevation of levels of liver transaminase levels (principal); Z90.49 Acquired absence of other specified parts of digestive tract ==

== ENCOUNTER → 2023-03-19 | Outpatient (CLI) | payer OTHER | END | disposition home or self-care (01) | LOC: CARD 09:58 | PROVIDERS: ATTEND Internal Medicine | DX: I49.1 Atrial premature depolarization (principal) ==

== ENCOUNTER → 2023-08-01 | Outpatient (CLI) | payer OTHER ==
[~2023-08-01] MED LIST changes: +AMOX-CLAV 875-1 EACH PO; +PREDNISONE50 MG PO
[2023-08-01 10:42] LABS: HEMATOCRIT 44.2 % (37.0-47.0); MEAN CELL VOLUME 89.5 fl (81.0-99.0); MEAN CORPUSCULAR HGB 29.8 pg (27.0-31.0); MEAN CORPUSCULAR HGB CONC 33.3 g/dl (33.0-37.0); MEAN PLATELET VOLUME 9.6 fl (9.6-12.3); PLATELET COUNT AUTOMATED 415 10*3/uL (130-400); RED BLOOD COUNT 4.94 10*6/uL (4.10-5.10); RED CELL DISTRI WIDTH 14.5 % (0-14.5)
[2023-08-01 10:46] LABS: MANUAL DIFF REFLEX YES
[2023-08-01 11:05] LABS: ATYPICAL LYMPHS 9 % (0-0); TOTAL CELLS COUNTED 100 #CELLS
[2023-08-01 11:06] LABS: ACANTHOCYTES FEW; ALKALINE PHOSPHATASE 77 U/L (46-116); BUN 14 mg/dl (9-23); BURR CELLS FEW; CHLORIDE 109 mmol/L (98-107); FREE T4 0.66 ng/dl (0.89-1.76); POTASSIUM 3.5 mmol/L (3.4-5.1); SGPT/ALT 13 U/L (5-49); TOTAL PROTEIN 7.6 gm/dL (6.0-8.0)
[2023-08-01 11:07] LABS: PLATELET SUFFICIENCY HIGH (NORMAL)
== END | disposition home or self-care (01) ==
LOC: LAB 10:24
PROVIDERS: ATTEND Internal Medicine
DX: R07.81 Pleurodynia (principal)

== ENCOUNTER 2023-08-02 17:52 | Emergency (ER) | payer OTHER ==
[~2023-08-02] VITALS: Ht 157.4 cm; Wt 79.4 kg
[~2023-08-02 17:52] MED LIST changes: -AMOX-CLAV 875-1 EACH PO; -PREDNISONE50 MG PO
[2023-08-02 17:59] VITALS: BP 143/93
[2023-08-02 19:06] LABS: HEMATOCRIT 40.5 % (37.0-47.0); MEAN CORPUSCULAR HGB 30.3 pg (27.0-31.0); MEAN CORPUSCULAR HGB CONC 34.1 g/dl (33.0-37.0); MEAN PLATELET VOLUME 9.5 fl (9.6-12.3); PLATELET COUNT AUTOMATED 414 10*3/uL (130-400); RED BLOOD COUNT 4.55 10*6/uL (4.10-5.10); RED CELL DISTRI WIDTH 14.3 % (0-14.5)
[2023-08-02 19:09] LABS: MANUAL DIFF REFLEX YES
[2023-08-02 19:18] LABS: ACT PARTIAL THROMBO TIME 31.3 SECONDS (20.0-32.1)
[2023-08-02 19:26] LABS: ALKALINE PHOSPHATASE 79 U/L (46-116); BUN 13 mg/dl (9-23); CHLORIDE 107 mmol/L (98-107); LIPASE 40 U/L (12-53); POTASSIUM 3.6 mmol/L (3.4-5.1); SGPT/ALT 14 U/L (5-49); TOTAL PROTEIN 7.6 gm/dL (6.0-8.0)
[2023-08-02 19:46] LABS: ATYPICAL LYMPHS 6 % (0-0); BURR CELLS FEW; STOMATOCYTE FEW; TOTAL CELLS COUNTED 100 #CELLS
[2023-08-02 19:47] LABS: OVALOCYTES FEW; PLATELET SUFFICIENCY HIGH (NORMAL); TARGET CELLS FEW
[2023-08-02] MEDS ORDERED: PREDNISONE50 MG PO (21:51)
[2023-08-02] MEDS ORDERED: AMOX-CLAV 875-1 EACH PO (21:51)
== END 2023-08-02 21:52 | disposition home or self-care (01) ==
LOC: ED 17:52
PROVIDERS: Emergency Medicine
DX: T36.8X5A Adverse effect of other systemic antibiotics, initial encounter (principal); Z86.73 Personal history of transient ischemic attack (TIA), and cerebral infarction without residual deficits; G43.909 Migraine, unspecified, not intractable, without status migrainosus; J44.9 Chronic obstructive pulmonary disease, unspecified; Z98.890 Other specified postprocedural states; Z98.51 Tubal ligation status; Y92.89 Other specified places as the place of occurrence of the external cause

== ENCOUNTER → 2023-09-17 | Outpatient (CLI) | payer OTHER ==
[~2023-09-17] MED LIST changes: +AMOX-CLAV 875-1 EACH PO; +ONDANSETRON4 MG SL; +PREDNISONE50 MG PO
== END | disposition home or self-care (01) ==
LOC: LAB 10:51
PROVIDERS: ATTEND Psychiatry & Neurology Neurology
DX: R41.3 Other amnesia (principal)

== ENCOUNTER 2023-09-19 12:57 | Emergency (ER) | payer OTHER ==
[~2023-09-19] VITALS: Ht 157.4 cm; Wt 78.9 kg
[~2023-09-19 12:57] MED LIST changes: -ONDANSETRON4 MG SL
[2023-09-19 13:02] VITALS: BP 147/75
[2023-09-19 14:30] LABS: BASO # 0.1 10*3/uL (0.0-0.1); BASO % 0.5 % (0.0-1.0); EOS % 0.2 % (1.0-4.0); HEMATOCRIT 45.3 % (37.0-47.0); LYMPH # 2.1 10*3/uL (1.3-4.4); LYMPH % 12.4 % (27.0-41.0); MEAN CELL VOLUME 91.9 fl (81.0-99.0); MEAN CORPUSCULAR HGB 29.4 pg (27.0-31.0); MEAN PLATELET VOLUME 10.1 fl (9.6-12.3); MONO # 0.8 10*3/uL (0.1-1.0); MONO % 4.8 % (3.0-9.0); NEUT # 13.6 10*3/uL (2.3-7.9); NEUT % 81.7 % (47.0-73.0); PLATELET COUNT AUTOMATED 292 10*3/uL (130-400); RED BLOOD COUNT 4.93 10*6/uL (4.10-5.10); RED CELL DISTRI WIDTH 14.1 % (0-14.5); WHITE BLOOD COUNT 16.6 10*3/uL (4.8-10.8)
[2023-09-19 14:58] LABS: ACT PARTIAL THROMBO TIME 28.9 SECONDS (20.0-32.1)
[2023-09-19 15:00] LABS: ALKALINE PHOSPHATASE 79 U/L (46-116); BUN 12 mg/dl (9-23); CHLORIDE 109 mmol/L (98-107); LIPASE 37 U/L (12-53); POTASSIUM 4.3 mmol/L (3.4-5.1); SGPT/ALT 17 U/L (5-49); TOTAL PROTEIN 7.2 gm/dL (6.0-8.0)
[2023-09-19] MEDS ORDERED: ONDANSETRON4 MG SL (15:09)
== END 2023-09-19 15:15 | disposition home or self-care (01) ==
LOC: ED 12:57
PROVIDERS: Nurse Practitioner Family
DX: A08.4 Viral intestinal infection, unspecified (principal); R11.2 Nausea with vomiting, unspecified; I25.10 Atherosclerotic heart disease of native coronary artery without angina pectoris; J44.9 Chronic obstructive pulmonary disease, unspecified; F32.A Depression, unspecified; K21.9 Gastro-esophageal reflux disease without esophagitis; E78.00 Pure hypercholesterolemia, unspecified; E03.9 Hypothyroidism, unspecified; G43.909 Migraine, unspecified, not intractable, without status migrainosus; Z98.890 Other specified postprocedural states; Z98.51 Tubal ligation status; Z86.73 Personal history of transient ischemic attack (TIA), and cerebral infarction without residual deficits

== ENCOUNTER → 2024-03-12 | Outpatient (CLI) | payer OTHER ==
[~2024-03-12] MED LIST changes: +ONDANSETRON4 MG SL
[2024-03-12 11:18] LABS: BUN 12 mg/dl (9-23); CHLORIDE 106 mmol/L (98-107); POTASSIUM 4.3 mmol/L (3.4-5.1)
== END | disposition home or self-care (01) ==
LOC: LAB 10:41
PROVIDERS: ATTEND Internal Medicine
DX: U07.1 COVID-19 (principal)

== ENCOUNTER 2024-05-05 14:59 | Emergency (ER) | payer OTHER ==
[~2024-05-05] VITALS: Ht 157.4 cm; Wt 82.6 kg
[2024-05-05 15:26] VITALS: BP 144/67
[2024-05-05] MEDS ORDERED: CYCLOBENZAPRINE10 MG PO (16:35)
[2024-05-05] MEDS ORDERED: Acetaminophen/Oxycodone 5 MG/325 MG TABLET PO ONE (16:40)
== END 2024-05-05 16:45 | disposition home or self-care (01) ==
LOC: ED 14:59
DX: S76.912A Strain of unspecified muscles, fascia and tendons at thigh level, left thigh, initial encounter (principal); M25.552 Pain in left hip; I25.10 Atherosclerotic heart disease of native coronary artery without angina pectoris; J44.9 Chronic obstructive pulmonary disease, unspecified; F32.A Depression, unspecified; K21.9 Gastro-esophageal reflux disease without esophagitis; E78.00 Pure hypercholesterolemia, unspecified; E03.9 Hypothyroidism, unspecified; E83.51 Hypocalcemia; G43.909 Migraine, unspecified, not intractable, without status migrainosus; Z86.73 Personal history of transient ischemic attack (TIA), and cerebral infarction without residual deficits; Z98.890 Other specified postprocedural states; Z98.51 Tubal ligation status; X58.XXXA Exposure to other specified factors, initial encounter; Y93.89 Activity, other specified; Y92.009 Unspecified place in unspecified non-institutional (private) residence as the place of occurrence of the external cause; Y99.8 Other external cause status